=== PATIENT | male | born 1940 | race African-American/Black ===

== ENCOUNTER 2016-10-08 02:28 | Inpatient (IN) ==
[2016-10-08] MEDS ORDERED: ASPIRIN 325 MG TABLET PO STA (02:46)
[2016-10-08] MEDS ORDERED: FUROSEMIDE 40 MG/4 ML VIAL IV STA (04:08)
[2016-10-08] MEDS ORDERED: FUROSEMIDE 40 MG/4 ML VIAL ONE (04:09)
[2016-10-08] MEDS ORDERED: ONDANSETRON 4 MG/2 ML VIAL IV PRN (04:14)
--- NOTE | 2016-10-08 04:14 | Emergency Department Note ---
Dayron Benitez Sierra, am scribing for, and in the presence of, Alice Ponce DO 02:46. IKris Catherine, DO, personally performed the services described in this documentation, ascribed by Brenda Padgett in my presence, and it is both accurate and complete . Arrival - Arrival Mode of Arrival: Stretcher Limitations: No Limitations Source: Patient - History of Present Illness HPI Narrative: Pt is a 76 y/o male that was transferred to the ED from [facility] for further evaluation of new onset Afib that began around 2200 last night and elevated troponin levels. Pt reports he was having CP and difficulty breathing and called EMS. Pt states he is no longer having these sxs or any other sxs currently in the ED. Pt denies a PCP. He reports he does have a PMHx of HTN and hyperlipidemia that he takes medications for. Pt states he received his Rx from his prostate surgery in [place], [place] 4 or 5 months ago. Pt denies any previous heart problems. Pt reports he quit smoking about 30 years ago. No other complaints/pain in ED. Onset (ago): hour(s) Severity: moderate Severity scale (1-10): 4 Quality: other Allergies/Adverse Reactions: Allergies Allergy/AdvReac Type Severity Reaction Status Date / Time Penicillins Allergy RASH Verified 10/08/16 02:47 Home Medications: Home Medications Medication Instructions Recorded Confirmed Type Finasteride [Proscar] 5 mg PO DAILY 10/08/16 10/08/16 History Lisinopril [Prinivil] 20 mg PO DAILY 10/08/16 10/08/16 History Tamsulosin [Flomax] 0.4 mg PO DAILY 10/08/16 10/08/16 History Review of System - Review of System 12 point system: reviewed and no additional remarkable complaints except as stated - Review of System Constitutional: Absent: chills, fever Respiratory: Present: other (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) Cardiovascular: Present: chest pain (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), palpitations Gastrointestinal: Absent: abdominal pain, nausea, vomiting Musculoskeletal: Absent: arm pain, back pain, leg pain, neck pain Skin: Absent: rash Neurological: Absent: headache Psychiatric: Absent: anxiety Medical,Surgical,& Family Hx - Medical History Cardio: History of: Hypertension Genitourinary: History of: Prostate Problems - Surgical History Reproductive Surgeries: Surgical HX of;: Prostate Surgery - Family History Family History: noncontributory - Social History Smoking Status: Former smoker Frequency of Alcohol Use: None Type of Drug Use: None Marital Status: Lives With:: Spouse Functional capacity: independent ambulation Exam Vital Signs: Vital Signs Temperature 98.5 F 10/08/16 02:28 Pulse Rate 115 H 10/08/16 03:29 Respiratory Rate 18 10/08/16 03:29 Blood Pressure 134/83 10/08/16 03:29 O2 Sat by Pulse Oximetry 96 10/08/16 03:29 - General General appearance: alert, in no apparent distress - Head Head exam: Present: atraumatic, normocephalic - Eye Eye exam: Present: PERRL, EOMI - ENT ENT exam: Present: mucous membranes moist. Absent: mucous membranes dry - Neck Neck exam: Present: full ROM. Absent: tenderness - Chest Chest inspection: Present: symmetric chest wall rise. Absent: tenderness - Respiratory Respiratory exam: Present: normal lung sounds bilaterally. Absent: respiratory distress - Cardiovascular Cardiovascular exam: Present: tachycardia, irregular rhythm, normal heart sounds - Abdominal Exam Abdominal exam: Present: soft. Absent: tenderness - Extremities Exam Extremities exam: Present: full ROM. Absent: tenderness - Back Exam Back exam: Present: full ROM. Absent: tenderness - Neurological Exam Neurological exam: Present: alert, oriented X3, CN II-XII intact. Absent: motor sensory deficit - Psychiatric Psychiatric exam: Present: normal affect, normal mood - Skin Skin exam: Present: warm, dry Course Course Narrative: This is a 76-year-old male who was transferred from [facility] for evaluation of new onset atrial fib. The patient reports to me that he has never had any kind of heart problems that he is aware of. He had prostate surgery back in June that was done in [facility] for benign prostatic hypertrophy. He takes a blood pressure medicine and a cholesterol medicine and a baby aspirin a day. The patient stated that tonight he felt very short of breath and called the ambulance to come to his house. When they arrived the patient was in respiratory distress but his heart was beating irregular and very fast. He was transported to the local hospital where he received Cardizem Lovenox aspirin and other medications. His heart rate dramatically improved and his shortness of breath got much better. The patient is now resting comfortably his heart rate is anywhere from 114-125 he is in atrial fibrillation. He says that he is feeling much better he denies any chest pain or shortness of breath to me at this time. Physical exam the patient is awake alert his vital signs are stable his heart rate is between 114- 120 it is in atrial fibrillation. HEENT exam is normal neck is supple heart has an irregularly irregular rate and rhythm lungs reveal breath sounds to be diminished at the bases his abdomen is rounded soft nontender with good bowel sounds. He has no masses. His extremities are intact his neurologic exam is nonfocal treatment in the ER I did review his previous treatment record. Repeat EKG shows atrial fibrillation of [address]-T changes. We repeated a troponin here which remains elevated at 0.0519. I placed a phone call to Dr. Petty on-call for cardiology she agrees with the admission. We will place him on a Cardizem drip and I will be giving him an additional dose of Lasix to help with the pulmonary edema. The patient is agreement with this treatment plan. - Reevaluation(s) Reevaluation #1: resting - no further complaints Time: 04:13 - Consultations Consultation #1: Dr. Petty consulted and has accepted the admission Time: 04:13 Results - Labs Lab Results: I have reviewed the patients labs Labs: Laboratory Tests 10/08/16 02:56 Troponin I 0.519 H - EKG EKG results: interpreted by ERMD EKG shows: atrial fibrillation - Impressions a fib with RVR Disposition Clinical Impression: Atrial fibrillation with RVR, CHF (congestive heart failure) Case discussed with: patient, patient's family Disposition: Still a Patient Condition: Stable Time of Disposition: 04:14
[2016-10-08] MEDS ORDERED: ENOXAPARIN 80 MG/0.8 ML SYRINGE SUBCUT SCH ×2 (05:00→21:00)
--- NOTE | 2016-10-08 06:28 | EKG Report ---
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
--- NOTE | 2016-10-08 07:32 | EKG Report ---
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
--- NOTE | 2016-10-08 08:45 | Cardiology History & Physical ---
Assessment and Plan - Time spent with patient Time spent with patient: Greater than 30 minutes (1) Orthopnea Status: Acute Assessment and plan: Patient presented to [facility] with complaints of orthopnea and new onset atrial fibrillation. This could be concerning for possible underlying coronary artery disease. Troponin was mildly elevated. After discussing further with Dr. Dominguez it was decided that patient would best benefit from left heart catheterization. Risk and benefits of procedure were reviewed with patient. He agrees to proceed with this procedure later today with Dr. Prado. Patient was kept n.p.o. and will plan for heart catheterization later today. -Echocardiogram -BNP -Chest x-ray -Further plan and addendum to follow per Dr. Dominguez Current Visit: Yes (2) Atrial fibrillation with RVR Status: Acute Assessment and plan: This appears to be a new onset atrial fibrillation with RVR. Patient has now converted to normal sinus rhythm with heart rates in the 70s. Will convert patient's diltiazem to p.o and further adjust medications as needed during his hospital stay. -We will add vitamin C 1000 mg twice daily Current Visit: Yes (3) Hypertension Status: Chronic Assessment and plan: This is currently well controlled. Will continue patient's home medications at this time. Will further adjust as needed during his hospital stay. Current Visit: Yes (4) BPH (benign prostatic hyperplasia) Status: Chronic Assessment and plan: This is clinically stable. I have restarted patient's home medications. 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 Redman is a 76 year old male -Citizen Of [place] male without a known history of coronary artery disease, not routinely followed by cardiology. Patient was transferred from [facility] in [place] after presenting with shortness of breath and new onset atrial fibrillation. Patient has cardiac risk factors significant for advanced age, hypertension, former smoker (quit 35 years ago), sedentary lifestyle and family history of coronary artery disease ( mom at age 61 from myocardial infarction). Patient has a past medical history of BPH. He denies ever undergoing heart catheterization. However, he confirms having a normal stress test at [facility] approximately 6 years ago. Patient was in his usual state of health until Saturday night when he was awoken from his sleep with shortness of breath. Patient confirms that his shortness of breath is relieved when he sits up. He denies chest pain, heaviness and tightness. He confirms heart racing and diaphoresis. Over the weekend this continued to progress. Saturday night around 11:30 PM he woke up with severe shortness of breath that was significantly worse than his previous episodes. At this time he felt that he needed to seen by medical personnel so he presented to [facility] ER for further evaluation. Upon arrival to [facility], he was noted to be in atrial fibrillation with a rapid ventricular response. Heart rate of 147 was noted. Troponin was noted to be mildly elevated at 0.1. Patient was then transported to [facility]. Patient was admitted under cardiology's service and housed on the telemetry unit. Of note, patient reports that he continues to be very active. 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 He denies any chest pain, heaviness or tightness on exertion. He also denies dyspnea on exertion. He reports that he only becomes short of breath at night when he lays down to sleep. However, he does confirm easy fatigability and having to take multiple rest breaks while performing his activities. He denies fever, chills, cough, nausea, vomiting, abdominal pain, melena and lower extremity swelling. Patient was seen and examined in the telemetry unit. He continues to deny chest pain, heaviness and tightness. He reports that his breathing is much better. Troponin is mildly elevated at 0.5 and 0.7. EKG reveals atrial fibrillation with a controlled ventricular response, LVH with ST abnormality in lateral leads. Q waves noted in V2 and V3. Patient is currently in normal sinus rhythm with heart rates in the 70s without any overt arrhythmias or ectopy noted. We will keep patient n.p.o. at this time and further discuss with Dr. Dominguez. Further plan and addendum to follow per Dr. Dominguez. Home Medications Medication Instructions Recorded Confirmed Type Finasteride [Proscar] 5 mg PO DAILY 10/08/16 10/08/16 History Lisinopril [Prinivil] 20 mg PO DAILY 10/08/16 10/08/16 History Tamsulosin [Flomax] 0.4 mg PO DAILY 10/08/16 10/08/16 History Allergies Allergy/AdvReac Type Severity Reaction Status Date / Time Penicillins Allergy RASH Verified 10/08/16 02:47 - Constitutional Constitutional: Present: fatigue. Absent: chills, fever(s), frequent falls, lethargy, malaise, weakness, weight gain, weight loss - Cardiovascular Cardiovascular: Present: diaphoresis, dyspnea, orthopnea, palpitations, PND. Absent: chest pain at rest, chest pain with activity, claudication, dyspnea on exertion, edema, radiating jaw, neck or arm pain, lightheadedness - Respiratory Respiratory: Present: dyspnea. Absent: cough, hemoptysis, dyspnea on exertion, pain on inspiration, change in phlegm color - Gastrointestinal Gastrointestinal: Absent: abdominal pain, constipation, cramping, diarrhea, heartburn, hematemesis, hematochezia, loose stools, melena, nausea, vomiting - Genitourinary Genitourinary: Present: other (BPH) - Neurological Neurological: Absent: abnormal gait, abnormal speech, behavioral changes, dizziness, syncope - Hematologic/Lymphatic Hematologic/Lymphatic: Absent: easy bleeding, easy bruising, lymphadenopathy Medical,Surgical,& Family Hx - Medical History Cardio: History of: Hypertension Genitourinary: History of: Prostate Problems - Surgical History Cardiac Surgeries: Patient Denies: Cardiac Catheterization Reproductive Surgeries: Surgical HX of;: Prostate Surgery - Social History Smoking Status: Former smoker Frequency of Alcohol Use: None Type of Drug Use: None Cardiology Physical Exam - Constitutional Vitals: Vital Signs Temp Pulse Resp BP Pulse Ox 96.8 F L 88 20 107/75 95 10/08/16 07:17 10/08/16 07:17 10/08/16 07:17 10/08/16 07:17 10/08/16 07:17 Intake and Output 10/07/16 10/08/16 10/08/16 22:59 06:59 14:59 Intake Total 38.5 / 488.5 Balance 38.5 / 188.5 Intake: IV 38.5 / 38.5 Cardizem Inj 125 mg In Ns 38.5 / 38.5 100 ml @ 5 MG/HR 5 mls/ hr IV TITRATE [facility] Rx#: [id number] Other: Weight 187 lb 3 oz General appearance: normal weight, no acute distress - Head Head exam: Present: normal inspection, normocephalic, atraumatic - Neck Neck exam: Present: normal inspection. Absent: lymphadenopathy, tenderness - Respiratory Respiratory exam: Present: other (Crackles in bilateral bases). Absent: accessory muscle use, chest wall tenderness - Cardiovascular Cardiovascular exam: Present: regular rate and rhythm. Absent: gallop, rubs, systolic murmur - GI/Abdominal GI/Abdominal exam: Present: normal bowel sounds - Extremities Exam Extremities exam: Present: normal inspection, normal capillary refill, other ( Normal upper and lower extremity pulses). Absent: calf tenderness, edema - Back Exam Back exam: Present: normal inspection - Neurological Exam Neurological exam: Present: alert, oriented X3, normal gait - Psychiatric Psychiatric exam: Present: normal affect, normal mood. Absent: agitated, anxious - Skin Skin exam: Present: normal color, warm, dry Result/EKG - Labs CBC & BMP: 10/08/16 08:47 10/08/16 08:47 Lab Results: I have reviewed the past 24 hour labs Labs: Laboratory Results - last 24 hr 10/08/16 05:28 Troponin I 0.739 H D - EKG EKG results: interpreted by me EKG shows: atrial fibrillation
--- NOTE | 2016-10-08 08:46 | EKG Report ---
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
[2016-10-08 08:53] LABS: Basophils % 0.2 % (0.0-0.8); Eosinophils # 0.1 10*3/uL (0.0-0.87); Eosinophils % 0.6 % (0.00-10.9); Hematocrit 37.5 VOL% (42.0-52.0); Hemoglobin 12.5 GM/DL (14.0-18.0); Immature Granulocytes % 0.2 %; Immature Granulocytes Absolute 0.02 #; Lymphocytes # 1.9 10*3/uL (1.4-4.0); Lymphocytes % 21.3 % (21.2-54.2); Mean Corpuscular HGB Conc 33.3 GM/DL (32-36); Mean Corpuscular Hemoglobin 28 PG (27-34); Mean Corpuscular Volume 84.7 FL (87-102); Mean Platelet Volume 11.4 FL (9.6-12.0); Monocytes # 0.8 10*3/uL (0.11-0.8); Monocytes % 9.7 % (1.7-12.7); Neutrophils # 5.9 10*3/uL (1.4-7.4); Platelet Count 169 T/CUMM (130-400); Red Blood Count 4.43 MC/CUMM (3.8-5.5); Red Cell Distribution Width 13.4 % (9.3-17.3); White Blood Count 8.7 T/CUMM (4-12)
[2016-10-08 09:30] LABS: Calcium 8.5 MG/DL (8.5-10.1); Magnesium 2.1 MG/DL (1.8-2.4); Osmolality,Calculated 290.8 MOS/KG (273-304)
[2016-10-08 09:38] LABS: Troponin I Only 0.719 NG/ML (0.00-0.045)
--- NOTE | 2016-10-08 10:05 | XRay Report ---
XR chest 1V portable Indication: Shortness of breath. Chest one view: Comparison outside facility chest x-ray obtained 8 hours earlier. Opacification of medial right lung base is again shown, suspicious for pneumonia. Underlying this is a diffuse reticular prominence of the lungs, cardiomegaly and slight central pulmonary vascular prominence. Impression: Right middle lobe pneumonia. Query underlying CHF. PROCEDURE INTERPRETED AT [facility] DEPARTMENT OF RADIOLOGY Final Report Signed by: Daniel Mohr M.D.
[2016-10-08] MEDS ORDERED: diphenhydrAMINE CAP 25 MG CAPSULE PO ONE (10:42)
[2016-10-08] MEDS ORDERED: DIAZEPAM 5 MG TABLET PO ONE (10:42)
[2016-10-08] MEDS ORDERED: POTASSIUM CHLORIDE RIDER 10 MEQ in PREMIX 1 EACH IV PRN (10:42)
[2016-10-08] MEDS ORDERED: MAGNESIUM SULF RIDER 2 GM in PREMIX 1 EACH IV PRN (10:42)
[2016-10-08] MEDS: ASCORBIC ACID 500 MG TABLET PO SCH ×2 (10:46→21:18)
[2016-10-08] MEDS ORDERED: DILTIAZEM 30 MG TABLET PO ONE (10:51)
[2016-10-08] MEDS ORDERED: SODIUM CHLORIDE 0.45% 1,000 ML IV SCH (11:00)
[2016-10-08 11:40] LABS: PT Patient Result 10.9 SECS
--- NOTE | 2016-10-08 11:44 | ECHO Report ---
Christiano Redman Exam Date: 10/08/2016 09:45 Referring Physician: Technologist: Shirley Lombardi Age: 76 Ht (in): 71 Wt (lb): 187 Gender: M Exam Location: [facility] Echo Indications: A fib, Chf BP: 107 / 75 HR: 88 Rhythm: Sinus Technical Quality: average IMPRESSIONS Moderate concentric left ventricular hypertrophy. The overall EF appears to be 55% but there is inferior wall hypokinesis. Diastolic parameters are most consistent with Grade 2 diastolic dysfunction or pseudonormalization. Very mild /AI Mild mitral regurgitation Biatrial enlargment Mild tricuspid insufficiency with RVSP estimated at 38mmHg plus the right atrial pressure (mild pulmonary hypertension) MEASUREMENTS (Male / Female) Normal Values 2D ECHO LV Diastolic Diameter PLAX 4.3 cm 4.2 - 5.9 / 3.9 - 5.3 cm LV Systolic Diameter PLAX 3.6 cm LV Fractional Shortening PLAX 18.1 % IVS Diastolic Thickness 1.7 cm 0.6 - 1.0 / 0.6 - 0.9 cm LVPW Diastolic Thickness 1.4 cm 0.6 - 1.0 / 0.6 - 0.9 cm RV Internal Dim ED PLAX 2.8 cm Aortic Root Diameter 2.8 cm LA Systolic Diameter LX 3.8 cm 3.0 - 4.0 / 2.7 - 3.8 cm DOPPLER TR Peak Velocity 308.0 cm/s TR Peak Gradient 37.9 mmHg FINDINGS Left Ventricle Moderate concentric left ventricular hypertrophy. The overall EF appears to be 55% but there is inferior wall hypokinesis. Diastolic parameters are most consistent with Grade 2 diastolic dysfunction or pseudonormalization. Right Ventricle Mildly increased right ventricular size. Right Atrium Moderately increased right atrial size. Left Atrium Moderately increased left atrial size. Mitral Valve Mild mitral valve sclerosis. Mild mitral valve regurgitation. Aortic Valve Mild aortic valve sclerosis. Mild aortic valve regurgitation. There is very mild aortic stenosis with peak velocity across the aortic valve of 1.86 m/sec Tricuspid Valve Mild tricuspid valve sclerosis. Mild tricuspid valve regurgitation. Tricuspid regurgitation velocities suggest a PAP of 37.9 mmHg + RAP. Pulmonic Valve Morphologically normal pulmonic valve. Pericardium No pericardial effusion. Aorta Normal size aortic root and proximal ascending aorta. Zhane Prado (Electronically Signed) Final Date: 08 Oct 2016 11:43
--- NOTE | 2016-10-08 11:54 | History and Physical Update ---
Sedation H&P Update - History and Physical H&P was reviewed, the patient examined and there: are no changes in the patients condition since last H&P was completed. - Dictation Physical: refer to H&P completed by admitting physician - Physical Exam Mental Status: alert and oriented Heart: regular rate and rhythm Lung: clear to auscultation Abdomen: within normal limits Vitals: within normal limits - Sedation Plan for Sedation: moderate Patient Consent: Procedure disscussed with patient and patinet has consented., Risks and benefits were discussed with patient,including infection,, bleeding, injury to surrounding structures, seizure, temporary nerve, Patient understands and accepts potential risks/benefits and agrees to, proceed. ASA Class: II Airway Assessment: Class III: Soft palate, base of uvula visible
[2016-10-08 11:57] LABS: Risk Ratio 3.13; VLDL CHOLESTEROL 8.6 MG/DL
[2016-10-08] MEDS ORDERED: LIDOCAINE 1% 20 ML VIAL ONE (11:59)
[2016-10-08] MEDS ORDERED: HEPARIN/NACL 0.9% 2 UNITS/ML 1,000 ML IV ONE (11:59)
[2016-10-08] MEDS ORDERED: VERAPAMIL 5 MG/2 ML VIAL ONE ×2 (12:20→12:39)
[2016-10-08] MEDS ORDERED: NITROGLYCERIN DRIP 0 MG/0 ML BOTTLE IV ONE (12:20)
--- NOTE | 2016-10-08 12:36 | XRay Report ---
XR chest 2V Indication: Shortness of breath. Chest 2 views: Comparison 10/08/2016 at 0856 hours. Heart size remains upper limits normal. Overall, interstitial prominence of lungs has decreased slightly although there is continued prominence noted. More focal area of density in the right lung bases improved slightly as well. Very small bilateral pleural effusions are present lateral view. Impression: Decreased interstitial prominence of the lungs, likely decreased edema. Very small bilateral pleural effusions. PROCEDURE INTERPRETED AT [facility] DEPARTMENT OF RADIOLOGY Final Report Signed by: Daniel Mohr M.D.
[2016-10-08] MEDS ORDERED: HEPARIN/NACL 0.9% 2 UNITS/ML 500 ML IV ONE (12:38)
[2016-10-08] MEDS ORDERED: NITROGLYCERIN DRIP 50 MG/250 ML BOTTLE IV ONE (12:39)
[2016-10-08] MEDS ORDERED: MIDAZOLAM 2 MG/2 ML VIAL ONE (12:40)
[2016-10-08] MEDS ORDERED: fentaNYL 100 MCG/2 ML VIAL ONE (12:41)
[2016-10-08] MEDS ORDERED: ACETAMINOPHEN 325 MG TABLET PO PRN (13:18)
--- NOTE | 2016-10-08 13:24 | Cardiac Catheterization ---
Date of Procedure:: 10/08/16 Pre-op Diagnosis: New onset atrial fibrillation and regional wall motion abnormality Post-op diagnosis: other (Angiographically normal right dominant epicardial coronary arteries) Procedure: Procedures: 1. Selective left and right coronary angiography 2. Left heart catheterization resting hemodynamics 4. Right femoral iliac angiography 5. Closure right femoral arteriotomy with Mynx closure device After consent was taken from the patient. Taken to the catheterization lab for left heart catheterization via the femoral artery. Time out was taken and recorded. 1% lidocaine was infiltrated in the skin and subcutaneous tissue overlying the right femoral artery. Modified Seldinger technique and an 18- gauge Cook needle was used for access to the right femoral artery. An 0.35 J- wire was advanced through the needle into the central aorta under fluoroscopy. A small skin was made and a 6 Kyrgyz sheath was placed over the wire. The sheath was aspirated and flushed. A JL46 was advanced over the wires in the left main coronary artery was selectively engaged. Multiple orthogonal views of the left system were obtained. The catheter was then exchanged over the wire. The sheath was aspirated and flushed. A JR4 catheter was advanced over the wire into the central aorta. The right coronary was selectively engaged and orthogonal views of the right coronary artery were obtained. The catheter was then exchanged over the wire, the sheath was aspirated and flushed. At this time an angled pigtail catheter was advanced across the aortic valve into the ventricle. Pressure measurements were obtained. Pullback measurements were performed. The dip unit operator reviewed the films. The sheath was aspirated and flushed and a right femoral and iliac angiography was performed. The access site was amenable for closure and the area was reprepped with ChloraPrep and draped with sterile towels. The Angio-Seal closure device was used in standard technique. There was no hematoma and distal pulses were good. Diagnostic fluoroscopy time 1.7 minutes with total fluoroscopy dose 179 mGy total contrast exposure 40 cc of Omnipaque FINDINGS: LV: 149/5 LVEDP: 12 Ao:147/66 EF: Not assessed LM: Angiographically normal LAD: Angiographically normal LCx: Angiographically normal, nondominant with large bifurcating first obtuse marginal very proximally RCA: There is a large dominant vessel RFA/ROSIE: His vessels are very large angiographically normal access is that are very close to branch vessel just above the bifurcation not amenable to closure with the Angio-Seal device. Assessment: 1. Angiographically normal right dominant epicardial coronary arteries 2. Normal resting hemodynamics 3. Normal right femoral iliac arteries PLAN: 1. Treatment of underlying her new onset atrial fibrillation while searching for other causes or contributing factors 2. I notified Dr. Dominguez and discussed with the patient's family. 4 hours of bedrest. Implants: Mynx closure device Anesthesia: minimal conscious sedation Surgeon / Physician: Zhane Prado Director Meetings: none Estimated blood loss: none Specimens: none sent Condition: stable Disposition: floor - Medications / Follow-up
[2016-10-08 14:54] LABS: CKMB % 7.3 %
[2016-10-08 14:55] LABS: Troponin I Only 0.556 NG/ML (0.00-0.045)
[2016-10-08] MEDS ORDERED: DILTIAZEM 90 MG TABLET PO SCH (15:00)
[2016-10-08] MEDS: DILTIAZEM CD 240 MG CAPSULE PO SCH (15:36)
[2016-10-08] MEDS: APIXABAN 5 MG TABLET PO SCH (21:18)
[2016-10-09 06:24] LABS: Basophils % 0.3 % (0.0-0.8); Eosinophils # 0.2 10*3/uL (0.0-0.87); Eosinophils % 2.2 % (0.00-10.9); Hematocrit 37.7 VOL% (42.0-52.0); Hemoglobin 12.3 GM/DL (14.0-18.0); Immature Granulocytes % 0.3 %; Immature Granulocytes Absolute 0.02 #; Lymphocytes # 2.6 10*3/uL (1.4-4.0); Lymphocytes % 34.4 % (21.2-54.2); Mean Corpuscular HGB Conc 32.6 GM/DL (32-36); Mean Corpuscular Hemoglobin 28 PG (27-34); Mean Corpuscular Volume 86.1 FL (87-102); Mean Platelet Volume 11.8 FL (9.6-12.0); Monocytes # 0.8 10*3/uL (0.11-0.8); Monocytes % 10.9 % (1.7-12.7); Neutrophils % 51.9 % (38.7-73.9); Platelet Count 168 T/CUMM (130-400); Red Blood Count 4.38 MC/CUMM (3.8-5.5); Red Cell Distribution Width 13.6 % (9.3-17.3); White Blood Count 7.6 T/CUMM (4-12)
[2016-10-09 06:53] LABS: Calcium 8.3 MG/DL (8.5-10.1); Osmolality,Calculated 291.7 MOS/KG (273-304); Potassium 4.1 MMOL/L (3.5-5.1)
[2016-10-09 06:57] LABS: Calcium 8.3 MG/DL (8.5-10.1); Magnesium 2.1 MG/DL (1.8-2.4); Osmolality,Calculated 289.8 MOS/KG (273-304); Potassium 4.1 MMOL/L (3.5-5.1)
--- NOTE | 2016-10-09 07:49 | EKG Report ---
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
[2016-10-09] MEDS: DILTIAZEM CD 240 MG CAPSULE PO SCH (08:24)
[2016-10-09] MEDS: APIXABAN 5 MG TABLET PO SCH (08:24)
[2016-10-09] MEDS: ASCORBIC ACID 500 MG TABLET PO SCH (08:25)
[2016-10-09] MEDS ORDERED: TAMSULOSIN 0.4 MG CAPSULE PO SCH (09:00)
[2016-10-09] MEDS ORDERED: LISINOPRIL 20 MG TABLET PO SCH (09:00)
[2016-10-09 12:17] VITALS: BP 121/55
--- NOTE | 2016-10-09 13:19 | Discharge Summary ---
Hospital Course - Hospital Course Hospital Course: Clinical Registered Nurse: None PCP: Tiana Lan, nurse practitioner Mr. Redman is a 76 year old male -Pakistani male without a known history of coronary artery disease, not routinely followed by cardiology. Patient has cardiac risk factors significant for advanced age, hypertension, former smoker ( quit 35 years ago), sedentary lifestyle and family history of coronary artery disease (mom at age 61 from myocardial infarction). Patient has a past medical history of BPH. He denies ever undergoing heart catheterization. However, he confirms having a normal stress test at [facility] approximately 6 years ago. Patient was transferred from [facility] in [place] after presenting with shortness of breath, new onset atrial fibrillation and mildly elevated cardiac enzymes. Subsequently, he underwent cardiac catheterization per Dr. Prado with the following impressions noted: Assessment: 1. Angiographically normal right dominant epicardial coronary arteries 2. Normal resting hemodynamics 3. Normal right femoral iliac arteries Post cardiac catheterization patient was transported back to the telemetry unit in stable condition. Patient has done well postoperatively has been without complications. His new onset Afib and shortness of breath thought to secondary to his hyperthyroidism. His TSH this admission was extremely low with elevated free T4. Patient is unsure is he has ever diagnosed with hyperthyroid in the past. However, he does not take any thyroid medications at home. Tapazole has been initiated. Right groin is soft without bleeding, hematoma and bruit. Distal pulses present. Patient has ambulated around the room and down the connor without any difficulty. Right groin has remained stable post ambulation. Groin precautions have been reviewed with the patient. He verbalizes understanding of this. Labs are stable post cath with creatinine of 0.9. He denies chest pain, heaviness and tightness this morning. He also reports that his breathing has greatly improved and appears to be back to baseline. During his hospitalization he converted back to a normal sinus rhythm with Cardizem, this will be continued at discharge. He will also be discharged home on Eliquis for stroke prevention. This could possibly be discontinued at a later date if patient remains in a normal sinus rhythm. Patient is anxious for discharge home. Having felt that patient has met maximal medical therapy, he will be discharged home in stable condition. Patient has been given an appointment with Gen admissions manager rn for management of his hyperthyroidism. He has also been given an appointment with Dr. Dominguez in approximately 2 weeks with CBC, BMP, magnesium and EKG. Patient will be discharged home on preadmission medications with the addition of Tapazole, 5 mg TID, Eliquis 5 mg BID, Diltiazem 240 Daily and vitamin C 1000 mg BID. Patient verbalizes understanding of discharge instructions and discharge medications. - Time spent with patient Time with patient DS: Greater than 30 minutes Diagnosis - Discharge Diagnosis (1) Orthopnea Status: Resolved (2) Atrial fibrillation with RVR Status: Resolved (3) Hypertension Status: Chronic (4) BPH (benign prostatic hyperplasia) Status: Chronic (5) Hyperthyroidism Status: Acute Specialty Discharge - Follow Up or Referrals Follow up with: Dale Dominguez MD [Physician] - 2 Weeks (Schedule follow up appointment with Dr. Dominguez in approximately 2 weeks with CBC, BMP, magnesium and EKG.) Discharge Plan - Discharge Data Disposition: Disch To Home/Self Care Condition at Discharge: Stable Discharge Diet: heart healthy Activity: no lifting (No lifting or squatting 1 week), other (Post cath expectations) Hygiene: may shower, other (Post cath expectations) Weight Bearing at Discharge: other (Post cath expectations) Driving: other (Post cath expectations) Contact your physician if you experience:: fever over 101, Difficulty voiding, Redness or swelling, Nausea/Vomiting, Shortness of breath, Bleeding, pain uncontrolled by pain medications - Discharge Medications New Apixaban [Eliquis] 5 mg PO BID #60 tablet Diltiazem Cd Cap [Cardizem CD] 240 mg PO DAILY #30 capsule methIMAzole [Tapazole] 5 mg PO TID #90 tablet Ascorbic Acid Tab [Vitamin C Tab] 1,000 mg PO BID #60 tablet Continue Lisinopril [Prinivil] 20 mg PO DAILY Tamsulosin [Flomax] 0.4 mg PO DAILY Discontinued Finasteride [Proscar] 5 mg PO DAILY - Follow Up or Referral - Forms/Instructions Exam - Constitutional Vitals: Period Temp Pulse Resp BP Sys/Rankin Pulse Ox Last 24 Hr 98.4 F-99.1 F 45-84 18-20 121-174/55-97 91-98 Exam: General appearance: normal weight, no acute distress - Head Head exam: Present: normal inspection, normocephalic, atraumatic - Neck Neck exam: Present: normal inspection. Absent: lymphadenopathy, tenderness - Respiratory Respiratory exam: Present: Clear to auscultation throughout. Absent: accessory muscle use, chest wall tenderness - Cardiovascular Cardiovascular exam: Present: regular rate and rhythm. Absent: gallop, rubs, systolic murmur - GI/Abdominal GI/Abdominal exam: Present: normal bowel sounds - Extremities Exam Extremities exam: Present: normal inspection, normal capillary refill, other ( Normal upper and lower extremity pulses). Absent: calf tenderness, edema right groin is soft without bleeding, hematoma and bruit. Distal pulses present. - Back Exam Back exam: Present: normal inspection - Neurological Exam Neurological exam: Present: alert, oriented X3, normal gait - Psychiatric Psychiatric exam: Present: normal affect, normal mood. Absent: agitated, anxious - Skin Skin exam: Present: normal color, warm, dry Discharge Results Labs on day of discharge: Labs from last 24 hours 10/09/16 10/09/16 10/09/16 05:22 05:22 05:22 WBC RBC Hgb Hct MCV MCH MCHC RDW Plt Count MPV Neut % (Auto) Lymph % (Auto) [place] % (Auto) Eos % (Auto) Baso % (Auto) Neut # (Auto) Lymph # (Auto) [place] # (Auto) Eos # (Auto) Baso # (Auto) Immature Gran % Nucleated RBC % Immature Gran # Nucleated RBCs # Sodium 145 144 Potassium 4.1 4.1 Chloride 113 H 113 H Carbon Dioxide 24 23 Anion Gap 12.1 12.1 BUN 23 H 23 H Creatinine 0.90 0.90 GFR Calculation 129 129 BUN/Creatinine Ratio 25.00 H 25.00 H Glucose 105 104 Calculated Osmolality 291.7 289.8 Calcium 8.3 L 8.3 L Magnesium 2.1 Total Creatine Kinase CK-MB (CK-2) CK and CKMB Interp Troponin I Free T4 2.85 H TSH 3rd Generation 10/09/16 10/09/16 10/08/16 05:22 05:22 14:09 WBC 7.6 RBC 4.38 Hgb 12.3 L Hct 37.7 L MCV 86.1 L MCH 28 MCHC 32.6 RDW 13.6 Plt Count 168 MPV 11.8 Neut % (Auto) 51.9 Lymph % (Auto) 34.4 [place] % (Auto) 10.9 Eos % (Auto) 2.2 Baso % (Auto) 0.3 Neut # (Auto) 4.0 Lymph # (Auto) 2.6 [place] # (Auto) 0.8 Eos # (Auto) 0.2 Baso # (Auto) 0.0 Immature Gran % 0.3 Nucleated RBC % 0.0 Immature Gran # 0.02 Nucleated RBCs # 0.00 Sodium Potassium Chloride Carbon Dioxide Anion Gap BUN Creatinine GFR Calculation BUN/Creatinine Ratio Glucose Calculated Osmolality Calcium Magnesium Total Creatine Kinase 81 CK-MB (CK-2) 5.9 H CK and CKMB Interp 7.3 Troponin I 0.234 H D 0.556 H D Free T4 TSH 3rd Generation 10/08/16 11:02 WBC RBC Hgb Hct MCV MCH MCHC RDW Plt Count MPV Neut % (Auto) Lymph % (Auto) [place] % (Auto) Eos % (Auto) Baso % (Auto) Neut # (Auto) Lymph # (Auto) [place] # (Auto) Eos # (Auto) Baso # (Auto) Immature Gran % Nucleated RBC % Immature Gran # Nucleated RBCs # Sodium Potassium Chloride Carbon Dioxide Anion Gap BUN Creatinine GFR Calculation BUN/Creatinine Ratio Glucose Calculated Osmolality Calcium Magnesium Total Creatine Kinase CK-MB (CK-2) CK and CKMB Interp Troponin I Free T4 TSH 3rd Generation < 0.005 L - Imaging and Cardiology Cardiology Procedure: report reviewed by hi DS: Provider Date of admission: 10/08/16 04:14 Primary care physician: . No PCP Attending physician on admission: Tiana Petty, Consults: 10/08/16 15:16 Consult to Case Mgmt/Social Srvs [CONS] Routine Reason for Case Mgmt/Social Srvs: Home Health Consult Comment: Nursing for education, med management Discharging clinician: Deb Reddy NP Expected date of discharge: 10/09/16
[2016-10-09] MEDS ORDERED: methIMAzole 5 MG TABLET PO SCH (15:00)
== END 2016-10-09 15:07 | disposition home or self-care (01) | DRG 287 ==
LOC: N.ED 02:28 → N.EDINP 04:14 → N.TELES 05:13
PROVIDERS: ADMIT Internal Medicine Cardiovascular Disease; ATTEND Internal Medicine Cardiovascular Disease
PROC: CLCCHCL (ICD-10-PCS; 2016-10-08 13:45)

== ENCOUNTER 2016-11-02 06:21 | Inpatient (IN) ==
[2016-11-02] MEDS: NOREPINEPHRINE 4 MG in SODIUM CHLORIDE 0.9% 246 ML IV SCH (06:30)
[2016-11-02] MEDS ORDERED: LEVOFLOXACIN INJ 150 ML IV ONE ×2 (06:30→07:40)
[2016-11-02] MEDS ORDERED: ONDANSETRON 4 MG/2 ML VIAL ONE (06:30)
[2016-11-02] MEDS ORDERED: AMIODARONE 150 MG/3 ML VIAL ONE (06:55)
[2016-11-02] MEDS ORDERED: LEVOFLOXACIN INJ 750 MG in PREMIX 1 EACH IV STA (06:56)
--- NOTE | 2016-11-02 06:56 | Emergency Department Note ---
Arrival - Arrival Chief Complaint: Shortness of Breath Stated Complaint: shortness of breath Limitations: Altered Mental Status, Physical Limitation Source: Old Records Reviewed Time Seen by Provider: 11/02/16 06:50 - History of Present Illness HPI Narrative: This 76-year-old black male presents on transfer from [place] and abated on on pressor, ventilatory, and antiarrhythmic support. The patient originally presented to the [place] ER with abrupt onset of severe shortness of breath, presenting to the [place] ER severely dyspneic and hypoxic. Subsequently the patient rapidly deteriorated requiring intubation soon followed by resuscitation as well as treatment for initially ventricular tachycardia which with electrical shock progressed to atrial fib with a rapid rate for which she was begun on amiodarone. Notable evaluation at [facility] prior to transfer revealed right middle and lower lobe pneumonia. Patient presents to our ER as stated in abated and on the laboratory pressor support, obviously in critical condition. Of note, the patient was hospitalized here 08 October for atrial fibrillation and cardiac cath which was subsequently negative per Dr. Petty. Onset (ago): hour(s) (Patient presents 3 hours post onset of symptoms) Allergies/Adverse Reactions: Allergies Allergy/AdvReac Type Severity Reaction Status Date / Time Penicillins Allergy RASH Verified 11/02/16 06:58 Home Medications: Home Medications Medication Instructions Recorded Confirmed Type Lisinopril [Prinivil] 20 mg PO DAILY 10/08/16 10/08/16 History Tamsulosin [Flomax] 0.4 mg PO DAILY 10/08/16 10/08/16 History Apixaban [Eliquis] 5 mg PO BID #60 tablet 10/09/16 Rx Ascorbic Acid Tab [Vitamin C Tab] 1,000 mg PO BID #60 tablet 10/09/16 Rx Diltiazem Cd Cap [Cardizem CD] 240 mg PO DAILY #30 capsule 10/09/16 Rx methIMAzole [Tapazole] 5 mg PO TID #90 tablet 10/09/16 Rx Review of System - Review of System ROS unobtainable: due to endotracheal tube, due to mental status Medical,Surgical,& Family Hx - Medical History Cardio: History of: Hypertension Neurology: No history of: Seizures Genitourinary: History of: Prostate Problems - Surgical History Cardiac Surgeries: Patient Denies: Cardiac Catheterization Reproductive Surgeries: Surgical HX of;: Prostate Surgery - Social History Smoking Status: Former smoker Exam Physical Examination: GENERAL: Well developed, well nourished black male intubated and paralyzed HEENT: Normocephalic. No trauma. Moist mucous membranes. EOMI. PERRLA. ENT NML NECK: Supple. No adenopathy. CARDIAC: Irregular. No murmurs. Heart rate 90-140 CHEST: Scattered expiratory esther and right axillary rales. ET tube lip line at 20. ABDOMEN: Soft. Nontender. Hypo-bowel sounds. EXTREMITIES: No trauma. Normal ROM. No pedal edema. SKIN: No diaphoresis. No rash. NEURO: Unresponsive and paralyzed Vital Signs: Vital Signs Temperature 96.4 F L 11/02/16 06:59 Pulse Rate 161 H 11/02/16 06:59 Respiratory Rate 16 11/02/16 08:05 Blood Pressure 128/83 11/02/16 06:59 O2 Sat by Pulse Oximetry 100 11/02/16 06:29 Course Course Narrative: During course of treatment the patient converted to sinus rhythm. - Consultations Consultation #1: Discussed with hospitalist service who will admit for further evaluation treatment. Results - Labs CBC & BMP: 11/02/16 07:04 11/02/16 07:04 Labs: Initial the laboratory revealed white blood cell count 14,000, hematocrit 44, glucose 197, BUN 19, creatinine 1.1, sodium 143, potassium 3.2. I have reviewed our laboratory noted the increase in white count to 19 5. I have also noted the positive cardiac enzymes with a troponin of 1.16. - Impressions Initial EKG [facility]: Sinus tachycardia at 112 with left atrial enlargement, left axis deviation, and left ventricular hypertrophy. EKG here: Atrial fibrillation at 113 with intraventricular conduction delay and nonspecific ST changes. - Diagnostic Findings Procedure: Chest x-ray: image reviewed by me, report reviewed by me ([facility] films revealed bilateral perihilar infiltrates with right middle and right lower lobe infiltrates. Chest x-ray here reveals progression of right-sided infiltrates to near white out for portions of the right lung field.) Disposition Clinical Impression: Right middle and lower lobe pneumonia, Status post cardiopulmonary arrest, Atrial fibrillation, Abnormal cardiac enzymes Case discussed with: patient's family Disposition: Still a Patient Condition: Critical Time of Disposition: 08:45
[2016-11-02] MEDS ORDERED: methylPREDNISolone SOD SUC 125 MG/2 ML VIAL IV STA (06:57)
[2016-11-02] MEDS ORDERED: ALBUTEROL NEB SOLN 5 MG/ML 20 ML/BOTTLE CONT NEB STA (06:57)
[2016-11-02 07:12] LABS: Basophils % 0.2 % (0.0-0.8); Eosinophils % 0.2 % (0.00-10.9); Hematocrit 40.8 VOL% (42.0-52.0); Hemoglobin 13.2 GM/DL (14.0-18.0); Immature Granulocytes Absolute 0.78 #; Lymphocytes # 2.5 10*3/uL (1.4-4.0); Lymphocytes % 12.8 % (21.2-54.2); Mean Corpuscular HGB Conc 32.4 GM/DL (32-36); Mean Corpuscular Hemoglobin 28 PG (27-34); Mean Corpuscular Volume 87.9 FL (87-102); Mean Platelet Volume 11.2 FL (9.6-12.0); Monocytes # 1.2 10*3/uL (0.11-0.8); Monocytes % 5.9 % (1.7-12.7); Neutrophils % 76.9 % (38.7-73.9); Platelet Count 216 T/CUMM (130-400); Red Blood Count 4.64 MC/CUMM (3.8-5.5); Red Cell Distribution Width 13.5 % (9.3-17.3); White Blood Count 19.5 T/CUMM (4-12)
--- NOTE | 2016-11-02 07:14 | EKG Report ---
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
[2016-11-02] MEDS ORDERED: AMIODARONE INJ 150 MG in DEXTROSE 5% 100 ML IV ONE (07:17)
[2016-11-02 07:22] LABS: INR 1.1; PT Patient Result 11.4 SECS; Partial Thromboplastin Time 28.8 SECS (0-40)
[2016-11-02] MEDS ORDERED: methylPREDNISolone SOD SUC 125 MG/2 ML VIAL ONE (07:40)
[2016-11-02 07:47] LABS: Alanine Aminotransferase 50 U/L (16-61); Albumin 2.5 G/DL (3.4-5.0); Alkaline Phosphatase 97 U/L (45-117); Aspartate Amino Transferase 77 U/L (0-37); Bilirubin,Total < 0.39 MG/DL (0.2-1.0); Blood Urea Nitrogen 20 MG/DL (7-18); Calcium 7.4 MG/DL (8.5-10.1); Glucose 232 MG/DL (74-106); Osmolality,Calculated 297.7 MOS/KG (273-304); Potassium 3.8 MMOL/L (3.5-5.1); Sodium 145 MMOL/L (136-145); Total Protein 6.2 G/DL (6.4-8.3)
[2016-11-02 07:58] LABS: Lymphocytes 8 % (20-55); Myelocytes 1 %; Segmented Neutrophils 89 % (50-85); Total Cells Counted 100
[2016-11-02 07:59] LABS: Hypochromasia 1+; Platelet Estimate Adequate; Polychromasia Slight; Target Cells Slight
--- NOTE | 2016-11-02 08:10 | CT Report ---
Referring physician: Rome Leon Exam: CT brain without contrast Date: November 02, 2016 Comparison: None Reason: Altered mental status The patient is an Emergency Department patient on November 02, 2016. Technique: Axial images of the head were obtained without the use of contrast. Total DLP was 997.9 mGy*cm. Findings: There is probable mild chronic microvascular ischemic change. Multiple scalp calcifications are also present. No hydrocephalus or midline shift is seen. There is no evidence of recent intracranial hemorrhage, abnormal mass effect or an acute infarction. No acute osseous process is identified. There is mild fluid within the right sphenoid sinus and minimal mucosal thickening within the sphenoid sinuses. The right mastoid air cells appear clear, but there may be mild fluid within the left mastoid air cells. Impression: 1. No acute intracranial process is identified. 2. Probable chronic microvascular ischemic change. 3. Mild sinus disease. The CT exam was performed using one or more of the following dose reduction techniques: Automated exposure control and adjustment of the mA and/or kV according to patient size. PROCEDURE INTERPRETED AT [facility] DEPARTMENT OF RADIOLOGY Final Report Signed by: Dr. Natali Harding
[2016-11-02 08:13] LABS: CKMB % 2.8 %
--- NOTE | 2016-11-02 08:15 | XRay Report ---
Referring Physician: Rome Leon Exam: XR chest 1V portable Date: November 02, 2016 at 7:37 AM Reason: Shortness of breath Comparison: Chest one view portable November 02, 2016 at 4:47 AM Findings: An endotracheal tube is in place with its distal tip at the thoracic inlet. A feeding tube is also present, but its distal tip is poorly visualized. The cardiac silhouette is again enlarged. There are diffuse hazy opacities within the right lung and in the left perihilar region. This could represent pulmonary edema and/or pneumonia. No pneumothorax or definite pleural fluid is identified. No acute osseous process is seen. Impression: 1. The distal tip of the endotracheal tube is at the level of the thoracic inlet. 2. Cardiomegaly. 3. There are diffuse hazy opacities within the right lung as well as left perihilar opacities. This is similar to the earlier chest x-ray and is concerning for pulmonary edema and/or pneumonia. PROCEDURE INTERPRETED AT [facility] DEPARTMENT OF RADIOLOGY Final Report Signed by: Dr. Natali Harding
[2016-11-02 08:16] LABS: Troponin I Only 1.16 NG/ML (0.00-0.045)
--- NOTE | 2016-11-02 08:17 | XRay Report ---
Referring Physician: Rome Leon Exam: XR chest 1V portable Date: November 02, 2016 at 7:37 AM Reason: Endotracheal tube placement Comparison: Chest x-ray portable November 02, 2016 at 4:47 AM Findings: An endotracheal tube is in place with its distal tip at the thoracic inlet. A feeding tube is also in place, extending into the stomach and beyond the [id number]. The cardiac silhouette is again enlarged. There are again diffuse hazy opacities within the right lung and in the left perihilar region. This could represent pulmonary edema and/or pneumonia. No pneumothorax or definite pleural fluid is identified. The osseous structures appear stable. Impression: The distal tip of the endotracheal tube is located at the thoracic inlet. The study is otherwise similar to before. PROCEDURE INTERPRETED AT [facility] DEPARTMENT OF RADIOLOGY Final Report Signed by: Dr. Natali Harding
--- NOTE | 2016-11-02 08:23 | XRay Report ---
Portable chest Date: 11/02/2016 Clinical history: Endotracheal tube placement Comparison: 11/02/2016 Technique: Portable AP sitting chest Findings: Stable cardiomegaly with calcification aortic knob. Persistent diffuse parenchymal findings in the lungs. The endotracheal tube remains at the level of T1. Nasogastric tube seen entering the stomach. Stable mediastinum and osseous structures. Impression: No significant change in the appearance of the chest. The tip of the endotracheal tube remains at the level of T1 and could safely be advanced below this level. Stable pulmonary edema with nasogastric tube seen entering the stomach. PROCEDURE INTERPRETED AT [facility] DEPARTMENT OF RADIOLOGY Final Report Signed by: Dr. Izabela Lemons
--- NOTE | 2016-11-02 08:27 | EKG Report ---
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
[2016-11-02 08:30] LABS: Apearance,Urine CLOUDY (Clear); Bilirubin,Urine Negative (Negative); Blood, Urine Moderate mg/dL (Negative); Glucose,Urine (UA) 150 mg/dL (Negative); Ketones,Urine Negative (Negative); Mucus,Urine Occasional /LPF (Occasional); Nitrite,Urine Negative (Negative); Protein,Urine 100 MG/DL; RBC,Urine 82 /HPF (0-4); Sperm,Urine Occasional /HPF (Negative); Squamous Epithelial Cell,Urine Occasional /HPF (0-10); Urine Color Yellow (Yellow); Urine Specific Gravity 1.006 (1.001-1.035); Urine Urobilinogen < 2.0 EU/DL (0.2-1.0); WBC,Urine 8 /HPF (0-6)
[2016-11-02 08:36] LABS: Barbiturates Screen,Urine Negative (Negative); Benzodiazepines Screen,Urine Positive (Negative); Cannabinoid Screen,Urine Negative (Negative); Opiate Screen,Urine Negative (Negative); Phencyclidine Screen,Urine Negative (Negative)
[2016-11-02 08:42] LABS: ABG Base Excess -10.3 MMOL/L (-2.5-2.5); ABG HCO3 16.4 MMOL/L (20-26); ABG Oxygen Saturation 99.1 % (95-100); ABG TCO2 18.4 MMOL/L (23-27)
[2016-11-02 08:43] LABS: ABG PH 7.136 (7.35-7.45)
[2016-11-02] MEDS: AMIODARONE INJ 450 MG in DEXTROSE 5% 241 ML IV SCH ×2 (08:44→23:25)
[2016-11-02] MEDS ORDERED: MAGNESIUM SULF RIDER 4 GM in PREMIX 1 EACH IV PRN (09:24)
[2016-11-02] MEDS ORDERED: ACETAMINOPHEN 325 MG TABLET PO PRN (09:24)
[2016-11-02] MEDS ORDERED: MAGNESIUM SULF RIDER 2 GM in PREMIX 1 EACH IV PRN (09:24)
[2016-11-02] MEDS ORDERED: MORPHINE 2 MG/1 ML SYRINGE IV PRN (09:24)
[2016-11-02] MEDS ORDERED: ONDANSETRON 4 MG/2 ML VIAL IV PRN (09:24)
[2016-11-02] MEDS ORDERED: POTASSIUM CHLORIDE 20 MEQ TABLET PO PRN ×2 (09:24)
--- NOTE | 2016-11-02 09:27 | Hospitalist History & Physical ---
Addendum entered and electronically signed by Nehemiah Wiggins PA 11/02/16 10:39 : Physical examination. General appearance: normal weight, intubated, sedated - Head Head exam: Present: normocephalic, atraumatic - Eye Eye exam: Present: EOMI. Absent: conjunctival injection, nystagmus Pupils: Present: VISHNU, normal accommodation - ENT ENT exam: Present: normal exam, normal external ear exam - Neck Neck exam: Present: thyromegaly, left anterior cervical enlargement - Respiratory Respiratory exam: Present: intubated, decreased lung sounds on right. Absent: wheezes - Cardiovascular Cardiovascular exam: Present: atrial fibrillation, tachycardia Absent: carotid bruit, gallop, rubs - GI/Abdominal GI/Abdominal exam: Present: normal bowel sounds. Absent: ascites, distended, mass - Extremities Exam Extremities exam: Present: normal inspection, normal capillary refill, trace edema bilaterally - Back Exam Back exam: Unable to assess due to endotracheal intubation - Neurological Exam Neurological exam: Present: Intubated, sedated - Psychiatric Psychiatric exam: Present: Unable to assess due to endotracheal intubation - Skin Skin exam: Present: normal color, warm, dry Original Note: <Nehemiah Wiggins - Last Filed: 11/02/16 10:36> Assessment and Plan (1) Respiratory failure requiring intubation Status: Acute Assessment and plan: This is a 76-year-old -Polish male who was transferred from [facility] intubated and sedated with propofol. ABGs on admission reveal a pH of 7.13, PCO2 of 60, PO2 283, HCO3 of 16.4. Chest x-ray shows endotracheal tube in place with distal tip appropriately at thoracic inlet. Blood cultures have been ordered. Patient will be admitted to the ICU. Pulmonology has been consulted for assistance with ventilation management. Current Visit: Yes (2) Pneumonia Status: Acute Assessment and plan: White count is 19.5. Chest x-ray shows diffuse hazy opacities within the right lung as well as left perihilar opacities concerning for pulmonary edema and/or pneumonia. Patient has been started on levofloxacin in the ED. He is being admitted to the ICU. We will continue levofloxacin plus aztreonam empiric coverage. Current Visit: Yes (3) Atrial fibrillation with RVR Status: Resolved Assessment and plan: Patient recently diagnosed with A. fib with RVR earlier this month. Prior left heart catheterization revealed no significant abnormalities. Patient takes Eliquis. He is currently on amiodarone drip and his rate is controlled. Cardiology been consulted. Current Visit: No (4) Hyperthyroidism Status: Acute Assessment and plan: Patient does have a noticeably enlarged left anterior neck. He was diagnosed with hypothyroidism earlier this year and does have an appointment scheduled with the [employer] [facility] supervisor for later this year. According the patient records he was started on methimazole previously. Will obtain a thyroid ultrasound, TSH and T4 levels. Current Visit: No (5) CHF (congestive heart failure) Status: Acute Assessment and plan: Elevated BNP. Troponin elevated 1.160. Will try and troponins and repeat EKGs. Ejection fraction not assessed unless LHC. Will obtain echocardiogram. Cardiology has been consulted. Current Visit: No (6) Hypertension Status: Chronic Current Visit: No (7) BPH (benign prostatic hyperplasia) Status: Chronic Current Visit: No History of Present Illness Chief complaint: Respiratory failure, pneumonia History of present illness: Mr. Redman is a 76 year old male with a past medical history significant for atrial fibrillation, hypertension, coronary artery disease, hyperthyroidism, BPH who presents as a transfer from [facility], intubated, for further evaluation of acute respiratory failure. This patient initially presented to the [place] ED with acute shortness of breath and was subsequently [facility] with worsening dyspnea and hypoxia. Patient was found to be in acute respiratory failure requiring intubation and subsequently went into ventricular tachycardia. After electrical shock, the patient progressed to atrial fibrillation with RVR and was started on an amiodarone drip. Chest x-ray at [facility] prior to transfer revealed right middle and lower lobe pneumonia. On admission to the [place] ED, the patient continues to be intubated and sedated. His found to be hypotensive and was started on Levophed drip. He is also being treated empirically with levofloxacin. The patient was recently hospitalized here at [place] on October 08, 2016 for new onset atrial fibrillation and was subsequently taken to the [facility] for an LHC which revealed no significant abnormalities. Ejection fraction was not assessed at that time. He is being followed by Dr. Dale Dominguez and was last seen in his office on Saturday, October 29, 2016. On exam, the patient is intubated sedated so complete review of systems was unobtainable. Patient's daughters were at bedside and provided much of the history that we received. Patient was examined by myself along with Dr. Rome. Family notes that the patient has been short of breath for at least 5 days and has been complaining of dysphagia to both solids and liquids for at least a week. They also note that the patient has recently lost 20 pounds which is thought to be related to his hyperthyroidism. He does have an appointment scheduled with the [employer] [facility] supervisor, however, it is in the fall of this year. According to previous hospital records, the patient does take methimazole. Preliminary labs admission reveal: WBC 19.5, hemoglobin 13.2, hematocrit 40.8, pH 7.136, PCO2 60.0, PO2 283.0, HCO3 16.4, BUN 20, creatinine 1.5, glucose 232, CKMB 8.5, troponin I 0.16, BNP 297. Urinalysis is unremarkable however a urine culture has been ordered. Toxicology is positive for benzodiazepines. Patient is obviously a full code and will be admitted to the ICU to the hospital medicine team for further evaluation and treatment. Case has been discussed with both Dr. Leon and Dr. Rome. Home Medications Medication Instructions Recorded Confirmed Type Lisinopril [Prinivil] 20 mg PO DAILY 10/08/16 10/08/16 History Tamsulosin [Flomax] 0.4 mg PO DAILY 10/08/16 10/08/16 History Apixaban [Eliquis] 5 mg PO BID #60 tablet 10/09/16 Rx Ascorbic Acid Tab [Vitamin C Tab] 1,000 mg PO BID #60 tablet 10/09/16 Rx Diltiazem Cd Cap [Cardizem CD] 240 mg PO DAILY #30 capsule 10/09/16 Rx methIMAzole [Tapazole] 5 mg PO TID #90 tablet 10/09/16 Rx Allergies Allergy/AdvReac Type Severity Reaction Status Date / Time Penicillins Allergy RASH Verified 11/02/16 06:58 Medical,Surgical,& Family Hx - Medical History Cardio: History of: CAD, Hypertension Neurology: No history of: Cerebrovascular Accident, Seizures Endocrine: History of: Thyroid Disorder (hyperthyroidism) Respiratory: History of: Pneumonia Genitourinary: History of: Prostate Problems - Surgical History Cardiac Surgeries: Sugical HX of: Cardiac Catheterization Reproductive Surgeries: Surgical HX of;: Prostate Surgery - Family History Family History: Reports;: Family Heart Disease, Family Hypertension - Social History Smoking Status: Former smoker Frequency of Alcohol Use: Rarely Type of Drug Use: None, Unknown Marital Status: Single Lives With:: Alone Functional capacity: independent ambulation ROS unobtainable: due to endotracheal tube Exam - Constitutional Vitals: Period Temp Pulse Resp BP Sys/Rankin Pulse Ox Last 24 Hr 96.4 F-96.4 F 103-161 16-16 125-154/73-93 100-100 Results - Labs CBC & BMP: 11/02/16 07:04 11/02/16 07:04 Lab Results: I have reviewed the past 24 hour labs - EKG EKG results: interpreted by RAMONAD EKG shows: atrial fibrillation - Diagnostic Findings Procedure: Chest x-ray: image reviewed by me, report reviewed by me (pulmonary edema/pneumonia), CT: image reviewed by me, report reviewed by me (no acute processes) <Gabriela Rome - Last Filed: 11/02/16 15:41> History of Present Illness History of present illness: Mr. Redman is a 76 year old male admitted s/p cardiopulmonary arrest and is intubated. Since admission, pt had a bronchoscopy and has started seizing. He was given Ativan 2mg IV x 1 and stat EEG ordered. Neurology saw the patient and felt he was in status epilepticus. He was started on IV Keppra. Overall prognosis is guarded. Antibiotics were changed to Cleocin as Levaquin and Aztreonam can lower the seizure threshold. Neuro: Neurochecks. Repeat EEG ordered. CT head reviewed. Pain meds and Diprovan ordered CV: Cont Vasoactive agents. Cardiology consulted. Cont Amiodarone drip. Serial cardiac markers. TSH. ECHO. PULM: F/U BAL studies, bronchodilators, vent support, pulm following. F/E/N/GI: Tubefeeds. Protonix IV for GI prophylaxis HEME: Lovenox for DVT prophylaxis. Serial labs. ID: Cleocin. F/U Blood, urine and sputum cultures. Overall prognosis is guarded. D/W pt, nurse, PA, neuro and family and all questions answered. Exam - Constitutional Vitals: Period Temp Pulse Resp BP Sys/Rankin Pulse Ox Last 24 Hr 96.4 F-97.4 F 60-161 16-31 99-166/53-109 98-100 Results - Labs CBC & BMP: 11/02/16 07:04 11/02/16 07:04
[2016-11-02] MEDS ORDERED: SODIUM CHLORIDE 0.45% 1,000 ML IV SCH (09:30)
[2016-11-02] MEDS ORDERED: ENOXAPARIN 40 MG/0.4 ML SYRINGE SUBCUT SCH (10:00)
[2016-11-02 10:06] LABS: Cholesterol 153 MG/DL (50-200); HDL Cholesterol 45 MG/DL (40-60); Thyroid Stimulating Hormone < 0.005 uIU/ml (0.358-3.74); Triglycerides 45 MG/DL (2-150)
[2016-11-02] MEDS ORDERED: AZTREONAM 2,000 MG in SODIUM CHLORIDE 0.9% 100 ML IV SCH (10:30)
--- NOTE | 2016-11-02 10:38 | Ultrasound Report ---
Exam: Thyroid sonogram Date: 11/02/2016 9:41 AM Indication: Hyperthyroidism Comparison: None Findings: Right Lobe: 4.2 x 1.6 x 2.4 cm diffuse inhomogeneity Left Lobe: 4.7 x 2.5 x 1.96 cm diffuse inhomogeneity Isthmus: 8.4 mm Impression: Diffuse inhomogeneity without a defined focal solid or cystic mass present. Ultrasound images were stored and captured The Ultrasound images were captured and stored. PROCEDURE INTERPRETED AT [facility] DEPARTMENT OF RADIOLOGY Final Report Signed by: Dr. Aayush Crowder
[2016-11-02] MEDS: PANTOPRAZOLE 40 MG VIAL IV SCH (11:43)
[2016-11-02] MEDS: SODIUM ACETATE 50 MEQ in SODIUM CHLORIDE 0.45% 1,000 ML IV SCH ×2 (11:44→20:35)
[2016-11-02] MEDS: PROPOFOL 1,000 MG/100 ML BOTTLE IV SCH ×3 (11:52→22:08)
[2016-11-02] MEDS ORDERED: LORazepam 2 MG/1 ML VIAL ONE (12:10)
[2016-11-02] MEDS ORDERED: LORazepam 2 MG/1 ML VIAL IM ONE (12:11)
--- NOTE | 2016-11-02 12:17 | Pulmonology Consult Note ---
Assessment and Plan (1) Status post cardiac Status: Acute Assessment and plan: At present patient is not responsive. He is having some seizure activity. Getting Ativan as needed. Defer to hospitalist. May want to put on Keppra. Current Visit: Yes (2) Seizures Status: Acute Assessment and plan: See above. Getting Ativan as needed for seizures. May be related to hypoxic brain injury. Too early to tell. May consider Keppra. Defer to hospitalist Current Visit: Yes (3) Atrial fibrillation with RVR Status: Resolved Assessment and plan: Rhythm seems regular now although his rates are around 120. Current Visit: No (4) Hyperthyroidism Status: Acute Assessment and plan: Continue methimazole. Check thyroid profiles. Need records from previous evaluation. Current Visit: No (5) Respiratory failure requiring intubation Status: Acute Assessment and plan: ABGs reflect adequate oxygen and sedation but inadequate ventilation. We have repositioned the ET tube. Hopefully will lead to reduction of PCO2. Also starting some bicarb IV. Current Visit: Yes History of Present Illness Chief complaint: Post cardiac arrest History of present illness: Mr. Redman is a 76 year old male referred from [facility]. He was admitted there with increasing shortness of breath and hypoxemia and in respiratory distress. He was intubated and developed ventricular tachycardia. He was defibrillated. He is on amiodarone drip at present. He was transferred here for further evaluation. He had a heart cath about 3 weeks ago here that reportedly was negative. At the present time he has a BNP of 297 which is mildly elevated and some infiltrate in the right lung. His ABG show a combined metabolic respiratory acidosis. His ET tube is too high on chest x-ray and needs repositioning. Patient is not able to give any history due to decreased level of consciousness and endotracheal tube. He has a history of hypothyroidism and is on methimazole. Home Medications Medication Instructions Recorded Confirmed Type Lisinopril [Prinivil] 20 mg PO DAILY 10/08/16 10/08/16 History Tamsulosin [Flomax] 0.4 mg PO DAILY 10/08/16 10/08/16 History Apixaban [Eliquis] 5 mg PO BID #60 tablet 10/09/16 Rx Ascorbic Acid Tab [Vitamin C Tab] 1,000 mg PO BID #60 tablet 10/09/16 Rx Diltiazem Cd Cap [Cardizem CD] 240 mg PO DAILY #30 capsule 10/09/16 Rx methIMAzole [Tapazole] 5 mg PO TID #90 tablet 10/09/16 Rx Allergies Allergy/AdvReac Type Severity Reaction Status Date / Time Penicillins Allergy RASH Verified 11/02/16 06:58 ROS unobtainable: due to endotracheal tube, due to mental status Exam (Pulmonay) H&P - Constitutional Vitals: Period Temp Pulse Resp BP Sys/Rankin Pulse Ox Last 24 Hr 96.4 F-97.4 F 103-161 16-30 125-166/73-109 98-100 Exam: Patient is unresponsive. Pupils are small but not reactive. Left pupil slightly larger than the right one. Patient is having intermittent seizure type activity. Orotracheal tube is in place. I have already repositioned it to where it is 28 cm at the lip. That is dictated separately. His neck is supple. Chest reveals some rhonchi bilaterally more on the right than the left. Heart rate around 120, regular rhythm, without murmur. Abdomen soft no masses. Extremities no clubbing cyanosis or edema. Medical,Surgical,& Family Hx - Medical History Cardio: History of: CAD, Hypertension Neurology: No history of: Cerebrovascular Accident, Seizures Endocrine: History of: Thyroid Disorder (hyperthyroidism) Respiratory: History of: Pneumonia Genitourinary: History of: Prostate Problems - Surgical History Cardiac Surgeries: Sugical HX of: Cardiac Catheterization Reproductive Surgeries: Surgical HX of;: Prostate Surgery - Family History Family History: Reports;: Family Heart Disease, Family Hypertension - Social History Smoking Status: Former smoker Frequency of Alcohol Use: Rarely Type of Drug Use: None, Unknown Results - Labs CBC & BMP: 11/02/16 07:04 11/02/16 07:04 Lab Results: I have reviewed the past 24 hour labs - Diagnostic Findings Procedure: Chest x-ray: image reviewed by me (Bilateral interstitial infiltrates worse on the right. Initial chest x-ray shows the ET tube to be too high barely in the thoracic inlet. Second chest x-ray shows ET tube about 3 cm above the melba once we have repositioned)
--- NOTE | 2016-11-02 12:29 | EKG Report ---
Stationary ECG Study [facility] Test Date: 11/02/2016 12:27:59 PM Pat Name: EVA POWELL Department: Room: 118 Gender: M Private Chef: : 1940 Requested by: Nehemiah Wiggins Order Number: [id number] Reading MD: RADHA PRUITT Intervals [place] Rate: 74 P: 63 OK: 181 QRS: 23 QRSD: 140 T: 253 QT: 469 QTc: 496 Interpretive Statements SINUS RHYTHM POSSIBLE LEFT ATRIAL ENLARGEMENT INTRAVENTRICULAR CONDUCTION DELAY ANTEROSEPTAL MYOCARDIAL INFARCTION, OF INDETERMINATE AGE Electronically Signed On 11-04-16 15:59:31 CDT by RADHA PRUITT [email or web address]
--- NOTE | 2016-11-02 12:31 | XRay Report ---
Referring Physician: Brodie Ivey MD Exam: XR chest 1V portable Date: November 02, 2016 at 11:57 AM Reason: Endotracheal tube repositioned Comparison: Chest one view portable November 02, 2016 at 7:37 AM Findings: An endotracheal tube is in place with its distal tip at the level of the aortic arch, approximately 3.5 cm above the melba. A feeding tube extends into the stomach and beyond the [id number]. The cardiac silhouette is again enlarged. There are diffuse hazy opacities within the right lung and opacities within the left lower lung zone. This could represent pulmonary edema and/or pneumonia. No pneumothorax is identified. The osseous structures appear stable. Impression: An endotracheal tube is in place as above. The study is otherwise similar to before. PROCEDURE INTERPRETED AT [facility] DEPARTMENT OF RADIOLOGY Final Report Signed by: Dr. Natali Harding
[2016-11-02 13:26] LABS: ABG Base Excess -11.7 MMOL/L (-2.5-2.5); ABG HCO3 15.6 MMOL/L (20-26); ABG Oxygen Saturation 99.3 % (95-100); ABG PO2 229.4 MM HG (80-95); ABG TCO2 16.8 MMOL/L (23-27); Allen Test Positive; Pt O2 Delivery Device Ventilator
[2016-11-02 13:28] LABS: ABG PH 7.209 (7.35-7.45)
[2016-11-02] MEDS: CLINDAMYCIN INJ 900 MG in PREMIX 1 EACH IV SCH ×2 (13:51→20:38)
[2016-11-02] MEDS: methIMAzole 5 MG TABLET PO SCH ×3 (13:58→20:35)
--- NOTE | 2016-11-02 14:31 | Cardiology Consult Note ---
Assessment and Plan - Time spent with patient Time spent with patient: Greater than 30 minutes (due to assessment, plan, and documentation) (1) Respiratory failure requiring intubation Status: Acute Assessment and plan: SEE PLAN OF CARE LISTED BELOW. Current Visit: Yes (2) Pneumonia Status: Acute Assessment and plan: SEE PLAN OF CARE LISTED BELOW. Current Visit: Yes (3) Atrial fibrillation with RVR Status: Chronic Assessment and plan: SEE PLAN OF CARE LISTED BELOW. Current Visit: No (4) Ventricular tachycardia Status: Acute Assessment and plan: SEE PLAN OF CARE LISTED BELOW. Current Visit: Yes (5) Hypertension Status: Chronic Assessment and plan: SEE PLAN OF CARE LISTED BELOW. Current Visit: No (6) Hyperthyroidism Status: Chronic Assessment and plan: SEE PLAN OF CARE LISTED BELOW. Current Visit: No (7) BPH (benign prostatic hyperplasia) Status: Chronic Assessment and plan: SEE PLAN OF CARE LISTED BELOW. Current Visit: No History of Present Illness - Data of Consult Patient: known to practice within the last 3 years Consult date: 11/02/16 Requesting Physician: Nehemiah Wiggins Primary care physician: DANTE SANTOYO - Consult Narrative Reason for consult: AFib, elevated troponin History of present illness: TOUCHER UP: DR. DOMINGUEZ PCP: GAVINO SARAVIA Mr. Redman is being seen in the ICU, room 118. He is sedated and intubated on mechanical ventilation. He is nonresponsive. Much of the history is obtained from the medical record. Mr. Redman is a 76 year old male with history of hypertension, paroxysmal atrial fibrillation, BPH, and hyperthyroidism. October 08, 2016, Mr. Redman presented to the hospital having palpitations and was noted to be in new onset atrial fibrillation. At that time he had a slight bump in his cardiac troponin so he underwent cardiac catheterization which showed no significant obstructive coronary artery disease. The [facility] failure. Apparently, he presented to the emergency room with worsening dyspnea and hypoxia. He required intubation and subsequently went into ventricular tachycardia. From what the nurses tell me, he was shocked 6 times and required 6 rounds of epinephrine along with CPR. After electrical shock, he went into atrial fibrillation with rapid ventricular response. He was started on an amiodarone drip and transferred to our facility for further evaluation and treatment. Chest x-ray at [facility] revealed a right middle and lower lobe pneumonia. On arrival to our facility, he was hypotensive and required vasopressor support with Levophed. He is now housed in our ICU and is having what appears to be seizure activity. Neurology has been consulted to see him. Pulmonology has been consulted for ventilator management. We were called to see him due to his atrial fibrillation and elevated troponin. Upon exam, he is no longer requiring vasopressors to maintain blood pressure and is now in sinus rhythm with rates in the 60s. He remains on IV amiodarone. He was recently seen in the clinic by Dr. Dominguez and had been complaining of CASTILLO and dizziness. He was prescribed Eliquis for anticoagulation but reported it was too expensive. He was noted to have bilateral carotid bruits and underwent carotid ultrasound on 10/26/16 which revealed 1-39% stenosis of the bilateral internal carotid arteries. He was also noted to have patent ECA bilaterally. He was prescribed a 30 day holter monitor to evaluate for cardiac arrhythmias but had difficulty with this and wished to discontinue it. Mr. Redman 's creatinine is 1.5 on admission with troponin 1.16, now up to 2.6 with elevated CK-MB and normal CPK. I suspect this is probably due to his electrical shock and CPR he received given his recent negative cardiac evaluation. We will follow along and monitor for cardiac arrhythmias. ASSESSMENT/PLAN: 1. RESPIRATORY FAILURE REQUIRING INTUBATION - ABGs on admission reveal pH of 7.13, PCO2 of 60, PO2 283, HCO3 of 16.4. He is sedated and on mechanical ventilation in the ICU. Pulmonology has been consulted for ventilator management. 2. PNEUMONIA - WBC 19.5. Pulmonology has been consulted. He has been started on IV antibiotics. Blood cultures are pending. 3. PAROXYSMAL ATRIAL FIBRILLATION WITH RVR - Continue IV amiodarone. Patient is now in normal sinus rhythm. Head CT showed no acute intracranial processes. Mr. Redman will require anticoagulation. 4. VENTRICULAR TACHYCARDIA REQUIRING SHOCK/CPR - Patient is now sedated and on mechanical ventilation. He is nonresponsive and having what appears to be seizure activity. EEG is pending. 5. HYPERTENSION - Hypotensive on admission, now well controlled and not requiring vasopressor support. We will continue to monitor and adjust medications accordingly. 6. HYPERTHYROIDISM - TSH <0.005, FT4 1.53 on admission. He is on Tapazole which will be continued. 7. BPH - This is chronic. He takes Flomax at home. Dr. Jerez to follow with further plan and addendum. CC: Gabriela Rome MD - Home Medications and Allergies Home Medications: Home Medications Medication Instructions Recorded Confirmed Type Lisinopril [Prinivil] 20 mg PO DAILY 10/08/16 10/08/16 History Tamsulosin [Flomax] 0.4 mg PO DAILY 10/08/16 10/08/16 History Apixaban [Eliquis] 5 mg PO BID #60 tablet 10/09/16 Rx Ascorbic Acid Tab [Vitamin C Tab] 1,000 mg PO BID #60 tablet 10/09/16 Rx Diltiazem Cd Cap [Cardizem CD] 240 mg PO DAILY #30 capsule 10/09/16 Rx methIMAzole [Tapazole] 5 mg PO TID #90 tablet 10/09/16 Rx Allergies/Adverse Reactions: Allergies Allergy/AdvReac Type Severity Reaction Status Date / Time Penicillins Allergy RASH Verified 11/02/16 06:58 ROS unobtainable: due to endotracheal tube, due to mental status Medical,Surgical,& Family Hx - Medical History Cardio: History of: Cardiac Dysrhythmia, Hypertension Neurology: No history of: Cerebrovascular Accident, Seizures Endocrine: History of: Thyroid Disorder (hyperthyroidism) Respiratory: History of: Pneumonia Genitourinary: History of: Prostate Problems - Surgical History Cardiac Surgeries: Sugical HX of: Cardiac Catheterization Reproductive Surgeries: Surgical HX of;: Prostate Surgery - Family History Family History: Reports;: Family Heart Disease, Family Hypertension - Social History Smoking Status: Former smoker Frequency of Alcohol Use: Rarely Type of Drug Use: None, Unknown Marital Status: Single Functional capacity: independent ambulation Physical Examination Vital Signs Temp Pulse Resp BP Pulse Ox 96.4 F L 161 H 16 128/83 100 11/02/16 06:29 11/02/16 06:29 11/02/16 06:29 11/02/16 06:29 11/02/16 06:29 Other: General appearance: Orally intubated and sedated on ventilator. Normal weight. - Head Head exam: Present: normal inspection, normocephalic, atraumatic. Absent: hematoma, laceration - Eye Eye exam: Absent: conjunctival injection, nystagmus, periorbital swelling, scleral icterus, laceration to eyelids Pupils: Absent: dilated, fixed - ENT ENT exam: Present: Orally intubated, normal external ear exam, NG tube in place - Neck Neck exam: Present: normal inspection. Absent: lymphadenopathy, meningismus, tenderness, thyromegaly - Respiratory Respiratory exam: Present: Mechanically ventilated breath sounds. Absent: accessory muscle use - Cardiovascular Cardiovascular exam: Present: regular rate and rhythm, bilateral carotid bruit, Grade 3 systolic murmur. Absent: gallop, JVD, rubs - GI/Abdominal GI/Abdominal exam: Present: normal bowel sounds, soft. Absent: distended, firm , guarding, hernia, mass, tenderness, rebound. - Extremities Exam Extremities exam: Present: normal inspection, normal capillary refill. Upper extremity pulses 2+. Lower extremity pulses 2+. 1+ BLE edema Absent: calf tenderness - Back Exam Back exam: Present: Unable to examine due to habitus. Sedated on mechanical ventilator. - Neurological Exam Neurological exam: Present: Limited due to habitus (on ventilator). Sedated. No purposeful movements. Does not follow commands or respond to verbal/painful stimuli. Has what appears to be seizure activity when stimulated. - Psychiatric Psychiatric exam: Present: Unable to adequately assess due to patient being sedated and on mechanical ventilation. - Skin Skin exam: Present: normal color, dry, intact. Absent: cyanosis, diaphoretic, rash, urticaria Result/EKG - Labs CBC & BMP: 11/02/16 07:04 11/02/16 07:04 Lab Results: I have reviewed the past 24 hour labs Labs: Laboratory Results - last 24 hr 11/02/16 11/02/16 11/02/16 07:04 07:04 07:04 WBC 19.5 H RBC 4.64 Hgb 13.2 L Hct 40.8 L MCV 87.9 MCH 28 MCHC 32.4 RDW 13.5 Plt Count 216 MPV 11.2 Neut % (Auto) 76.9 H Lymph % (Auto) 12.8 L [place] % (Auto) 5.9 Eos % (Auto) 0.2 Baso % (Auto) 0.2 Neut # (Auto) 15.0 H Lymph # (Auto) 2.5 [place] # (Auto) 1.2 H Eos # (Auto) 0.0 Baso # (Auto) 0.0 Total Counted 100 Immature Gran % 4.0 Nucleated RBC % 0.0 Immature Gran # 0.78 Segmented Neutrophils 89 H Lymphocytes 8 L Monocytes 2 Myelocytes 1 Nucleated RBCs # 0.00 Platelet Estimate Adequate Polychromasia Slight Hypochromasia 1+ Target Cells Slight INR 1.1 PT Patient/Control Mix 11.4 Circ Anticoag PTT 28.8 ABG pH ABG pCO2 ABG pO2 ABG HCO3 ABG Total CO2 ABG O2 Saturation ABG Base Excess FiO2 Sodium 145 Potassium 3.8 Chloride 114 H Carbon Dioxide 20 L Anion Gap 14.8 BUN 20 H Creatinine 1.50 H GFR Calculation 64 BUN/Creatinine Ratio 13.00 Glucose 232 H Calculated Osmolality 297.7 Calcium 7.4 L Magnesium Total Bilirubin < 0.39 AST 77 H ALT 50 Alkaline Phosphatase 97 Total Creatine Kinase CK-MB (CK-2) CK and CKMB Interp Troponin I B-Natriuretic Peptide Total Protein 6.2 L Albumin 2.5 L Globulin 3.7 H Albumin/Globulin Ratio 0.6 L Triglycerides Cholesterol LDL Cholesterol VLDL Cholesterol HDL Cholesterol Heart Disease Risk Ratio Free T4 TSH 3rd Generation Urine Color Urine Appearance Urine pH Ur Specific [place] Urine Protein Urine Glucose (UA) Urine Ketones Urine Blood Urine Nitrate Urine Bilirubin Urine Urobilinogen Urine Leukocytes Urine RBC Urine WBC Ur Squamous Epith Cells Urine Mucus Urine Sperm Ur Culture Indicated? Urine Opiates Screen Ur Barbiturates Screen Ur Phencyclidine Scrn U Amphetamine/Methamph U Benzodiazepines Scrn U Cocaine Metab Screen U Cannabinoids Screen 11/02/16 11/02/16 11/02/16 07:04 07:04 07:04 WBC RBC Hgb Hct MCV MCH MCHC RDW Plt Count MPV Neut % (Auto) Lymph % (Auto) [place] % (Auto) Eos % (Auto) Baso % (Auto) Neut # (Auto) Lymph # (Auto) [place] # (Auto) Eos # (Auto) Baso # (Auto) Total Counted Immature Gran % Nucleated RBC % Immature Gran # Segmented Neutrophils Lymphocytes Monocytes Myelocytes Nucleated RBCs # Platelet Estimate Polychromasia Hypochromasia Target Cells INR PT Patient/Control Mix Circ Anticoag PTT ABG pH ABG pCO2 ABG pO2 ABG HCO3 ABG Total CO2 ABG O2 Saturation ABG Base Excess FiO2 Sodium Potassium Chloride Carbon Dioxide Anion Gap BUN Creatinine GFR Calculation BUN/Creatinine Ratio Glucose Calculated Osmolality Calcium Magnesium Total Bilirubin AST ALT Alkaline Phosphatase Total Creatine Kinase 305 CK-MB (CK-2) 8.5 H CK and CKMB Interp 2.8 Troponin I 1.160 H B-Natriuretic Peptide 297 H Total Protein Albumin Globulin Albumin/Globulin Ratio Triglycerides Cholesterol LDL Cholesterol VLDL Cholesterol HDL Cholesterol Heart Disease Risk Ratio Free T4 1.53 H TSH 3rd Generation Urine Color Urine Appearance Urine pH Ur Specific [place] Urine Protein Urine Glucose (UA) Urine Ketones Urine Blood Urine Nitrate Urine Bilirubin Urine Urobilinogen Urine Leukocytes Urine RBC Urine WBC Ur Squamous Epith Cells Urine Mucus Urine Sperm Ur Culture Indicated? Urine Opiates Screen Ur Barbiturates Screen Ur Phencyclidine Scrn U Amphetamine/Methamph U Benzodiazepines Scrn U Cocaine Metab Screen U Cannabinoids Screen 11/02/16 11/02/16 11/02/16 07:04 07:04 08:04 WBC RBC Hgb Hct MCV MCH MCHC RDW Plt Count MPV Neut % (Auto) Lymph % (Auto) [place] % (Auto) Eos % (Auto) Baso % (Auto) Neut # (Auto) Lymph # (Auto) [place] # (Auto) Eos # (Auto) Baso # (Auto) Total Counted Immature Gran % Nucleated RBC % Immature Gran # Segmented Neutrophils Lymphocytes Monocytes Myelocytes Nucleated RBCs # Platelet Estimate Polychromasia Hypochromasia Target Cells INR PT Patient/Control Mix Circ Anticoag PTT ABG pH 7.136 L* ABG pCO2 60.0 H ABG pO2 283.0 H ABG HCO3 16.4 L ABG Total CO2 18.4 L ABG O2 Saturation 99.1 ABG Base Excess -10.3 L FiO2 Sodium Potassium Chloride Carbon Dioxide Anion Gap BUN Creatinine GFR Calculation BUN/Creatinine Ratio Glucose Calculated Osmolality Calcium Magnesium 2.0 Total Bilirubin AST ALT Alkaline Phosphatase Total Creatine Kinase CK-MB (CK-2) CK and CKMB Interp Troponin I B-Natriuretic Peptide Total Protein Albumin Globulin Albumin/Globulin Ratio Triglycerides 45 Cholesterol 153 LDL Cholesterol 108.0 VLDL Cholesterol 9.0 HDL Cholesterol 45 Heart Disease Risk Ratio 3.40 Free T4 TSH 3rd Generation < 0.005 L Urine Color Urine Appearance Urine pH Ur Specific [place] Urine Protein Urine Glucose (UA) Urine Ketones Urine Blood Urine Nitrate Urine Bilirubin Urine Urobilinogen Urine Leukocytes Urine RBC Urine WBC Ur Squamous Epith Cells Urine Mucus Urine Sperm Ur Culture Indicated? Urine Opiates Screen Ur Barbiturates Screen Ur Phencyclidine Scrn U Amphetamine/Methamph U Benzodiazepines Scrn U Cocaine Metab Screen U Cannabinoids Screen 11/02/16 11/02/16 11/02/16 08:16 08:16 12:59 WBC RBC Hgb Hct MCV MCH MCHC RDW Plt Count MPV Neut % (Auto) Lymph % (Auto) [place] % (Auto) Eos % (Auto) Baso % (Auto) Neut # (Auto) Lymph # (Auto) [place] # (Auto) Eos # (Auto) Baso # (Auto) Total Counted Immature Gran % Nucleated RBC % Immature Gran # Segmented Neutrophils Lymphocytes Monocytes Myelocytes Nucleated RBCs # Platelet Estimate Polychromasia Hypochromasia Target Cells INR PT Patient/Control Mix Circ Anticoag PTT ABG pH ABG pCO2 ABG pO2 ABG HCO3 ABG Total CO2 ABG O2 Saturation ABG Base Excess FiO2 Sodium Potassium Chloride Carbon Dioxide Anion Gap BUN Creatinine GFR Calculation BUN/Creatinine Ratio Glucose Calculated Osmolality Calcium Magnesium Total Bilirubin AST ALT Alkaline Phosphatase Total Creatine Kinase CK-MB (CK-2) CK and CKMB Interp Troponin I 2.600 H D B-Natriuretic Peptide Total Protein Albumin Globulin Albumin/Globulin Ratio Triglycerides Cholesterol LDL Cholesterol VLDL Cholesterol HDL Cholesterol Heart Disease Risk Ratio Free T4 TSH 3rd Generation Urine Color Yellow Urine Appearance Cloudy Urine pH 5.0 Ur Specific [place] 1.006 Urine Protein 100 Urine Glucose (UA) 150 Urine Ketones Negative Urine Blood Moderate Urine Nitrate Negative Urine Bilirubin Negative Urine Urobilinogen < 2.0 H Urine Leukocytes Negative Urine RBC 82 Urine WBC 8 Ur Squamous Epith Cells Occasional Urine Mucus Occasional Urine Sperm Occasional Ur Culture Indicated? Results to follow Urine Opiates Screen Negative Ur Barbiturates Screen Negative Ur Phencyclidine Scrn Negative U Amphetamine/Methamph Negative U Benzodiazepines Scrn Positive H U Cocaine Metab Screen Negative U Cannabinoids Screen Negative 11/02/16 11/02/16 12:59 13:20 WBC RBC Hgb Hct MCV MCH MCHC RDW Plt Count MPV Neut % (Auto) Lymph % (Auto) [place] % (Auto) Eos % (Auto) Baso % (Auto) Neut # (Auto) Lymph # (Auto) [place] # (Auto) Eos # (Auto) Baso # (Auto) Total Counted Immature Gran % Nucleated RBC % Immature Gran # Segmented Neutrophils Lymphocytes Monocytes Myelocytes Nucleated RBCs # Platelet Estimate Polychromasia Hypochromasia Target Cells INR PT Patient/Control Mix Circ Anticoag PTT ABG pH 7.209 L* ABG pCO2 40.0 ABG pO2 229.4 H ABG HCO3 15.6 L ABG Total CO2 16.8 L ABG O2 Saturation 99.3 ABG Base Excess -11.7 L FiO2 60.00 Sodium Potassium Chloride Carbon Dioxide Anion Gap BUN Creatinine GFR Calculation BUN/Creatinine Ratio Glucose Calculated Osmolality Calcium Magnesium Total Bilirubin AST ALT Alkaline Phosphatase Total Creatine Kinase CK-MB (CK-2) CK and CKMB Interp Troponin I B-Natriuretic Peptide Total Protein Albumin Globulin Albumin/Globulin Ratio Triglycerides Cholesterol LDL Cholesterol VLDL Cholesterol HDL Cholesterol Heart Disease Risk Ratio Free T4 1.58 H TSH 3rd Generation Urine Color Urine Appearance Urine pH Ur Specific [place] Urine Protein Urine Glucose (UA) Urine Ketones Urine Blood Urine Nitrate Urine Bilirubin Urine Urobilinogen Urine Leukocytes Urine RBC Urine WBC Ur Squamous Epith Cells Urine Mucus Urine Sperm Ur Culture Indicated? Urine Opiates Screen Ur Barbiturates Screen Ur Phencyclidine Scrn U Amphetamine/Methamph U Benzodiazepines Scrn U Cocaine Metab Screen U Cannabinoids Screen - EKG EKG results: interpreted by me, sinus rhythm
--- NOTE | 2016-11-02 14:51 | Neurology Consult Note ---
History of Present Illness History of present illness: Patient unable to provide me any history. History basically obtained from the chart Mr. Redman is a 76 year old male with a past medical history significant for atrial fibrillation, hypertension, coronary artery disease, hyperthyroidism, BPH who presents as a transfer from [facility], intubated, for further evaluation of acute respiratory failure. This patient initially presented to the [facility] ED with acute shortness of breath and was subsequently transferred to admission with general ED with worsening dyspnea and hypoxia. Patient was found to be in acute respiratory failure requiring intubation and subsequently went into ventricular tachycardia. After electrical shock, the patient progressed to atrial fibrillation with RVR and was started on an amiodarone drip. Chest x-ray at [facility] prior to transfer revealed right middle and lower lobe pneumonia. He was found to be hypotensive and was started on Levophed drip. He was also being treated empirically with levofloxacin. In the hospital and since he was started having some jerking movements and shaking of the arm and whole face which looks like a seizure. Home Medications Medication Instructions Recorded Confirmed Type Lisinopril [Prinivil] 20 mg PO DAILY 10/08/16 10/08/16 History Tamsulosin [Flomax] 0.4 mg PO DAILY 10/08/16 10/08/16 History Apixaban [Eliquis] 5 mg PO BID #60 tablet 10/09/16 Rx Ascorbic Acid Tab [Vitamin C Tab] 1,000 mg PO BID #60 tablet 10/09/16 Rx Diltiazem Cd Cap [Cardizem CD] 240 mg PO DAILY #30 capsule 10/09/16 Rx methIMAzole [Tapazole] 5 mg PO TID #90 tablet 10/09/16 Rx Allergies Allergy/AdvReac Type Severity Reaction Status Date / Time Penicillins Allergy RASH Verified 11/02/16 06:58 ROS unobtainable: due to endotracheal tube, due to mental status Medical,Surgical,& Family Hx - Medical History Cardio: History of: Cardiac Dysrhythmia, CAD, Hypertension Neurology: No history of: Cerebrovascular Accident, Seizures Endocrine: History of: Thyroid Disorder (hyperthyroidism) Respiratory: History of: Pneumonia Genitourinary: History of: Prostate Problems - Surgical History Cardiac Surgeries: Sugical HX of: Cardiac Catheterization Reproductive Surgeries: Surgical HX of;: Prostate Surgery - Family History Family History: Reports;: Family Heart Disease, Family Hypertension - Social History Smoking Status: Former smoker Frequency of Alcohol Use: Rarely Type of Drug Use: None, Unknown Exam - Constitutional Vitals: Period Temp Pulse Resp BP Sys/Rankin Pulse Ox Last 24 Hr 96.4 F-97.4 F 61-161 16-31 99-166/53-109 98-100 Exam: GENERAL: Patient is in no acute distress. NECK: Neck is supple. There is no JVD. No carotid bruits present. No thyroid masses. CVS: First and second heart sounds are normal. There is no S3 present. Regular rate and rhythm. RESPIRATORY: Lungs are clear to auscultation without any rales or rhonchi. ABDOMEN: Soft and non-tender. Bowel sounds are present. There is no hepatosplenomegaly. EXT: There is no palpable edema. Peripheral pulses are present. Skin: No rashes Central Nervous system: General: Unresponsive on vent Speech: None Comprehension: None Facial expressions: Normal Cranial Nerves: Pupils are sluggish. Doll's head eye movements are positive. No facial asymmetry is seen. Motor: Bulk and Tone is normal. Strength cannot be assessed, frequent tonic-clonic activity seen affecting right side of the body Sensory: Grossly intact for all the modalities of PP, LT and temp sense Reflexes: 1+ and symmetrical Cerebellar function: Cannot be assessed Toes: Equivocal Gait: Cannot be assessed Results - Labs CBC & BMP: 11/02/16 07:04 11/02/16 07:04 Assessment and Plan (1) Status epilepticus Status: Acute Assessment and plan: Keppra 1 g followed by 500 mg IV every 8 EEG is done but it is full of artifact. We will try to repeat EEG. Of note CT head revealed no acute abnormalities. Current Visit: Yes
[2016-11-02] MEDS: ENOXAPARIN 80 MG/0.8 ML SYRINGE SUBCUT SCH (15:16)
[2016-11-02] MEDS ORDERED: DEXTROSE 50% 25 GM/50 ML VIAL IV PRN (15:58)
[2016-11-02] MEDS ORDERED: GLUCAGON 1 MG VIAL IM PRN (15:58)
--- NOTE | 2016-11-02 17:37 | ECHO Report ---
RedmanChristiano Exam Date: 11/02/2016 15:07 Referring Physician: Technologist: Shirley Lombardi Age: 76 Ht (in): 73 Wt (lb): 190 Gender: M Exam Location: [facility] Echo Indications: resp failure, orthopnea, BPN, HTN, seizures, status post cardiac, pneumonia BP: 107 / 56 HR: 66 Rhythm: Sinus Technical Quality: IMPRESSIONS Normal left ventricular size, with moderate concentric hypertrophy. The apex is severely hypokinetic, the remaining segments have normal systolic thickening. Estimated left ventricular ejection fraction 40%. Grade 2 diastolic dysfunction. Mild mildly thickened mitral valve with mild mitral regurgitation. Mild aortic valve sclerosis without stenosis or regurgitation. MEASUREMENTS (Male / Female) Normal Values 2D ECHO LV Diastolic Diameter PLAX 4.5 cm 4.2 - 5.9 / 3.9 - 5.3 cm LV Systolic Diameter PLAX 3.4 cm LV Fractional Shortening PLAX 24.1 % IVS Diastolic Thickness 1.5 cm 0.6 - 1.0 / 0.6 - 0.9 cm LVPW Diastolic Thickness 1.4 cm 0.6 - 1.0 / 0.6 - 0.9 cm RV Internal Dim ED PLAX 2.4 cm Aortic Root Diameter 2.5 cm LA Systolic Diameter LX 3.6 cm 3.0 - 4.0 / 2.7 - 3.8 cm DOPPLER TR Peak Velocity 115.0 cm/s TR Peak Gradient 5.3 mmHg FINDINGS Left Ventricle Normal left ventricular size, with moderate concentric hypertrophy. The apex is severely hypokinetic, the remaining segments have normal systolic thickening. Estimated left ventricular ejection fraction 40%. Grade 2 diastolic dysfunction. Right Ventricle The right ventricle is normal in size, with normal systolic motion. Right Atrium Normal right atrial size. Left Atrium Normal left atrial size. Mitral Valve Mild mildly thickened mitral valve with mild mitral regurgitation. Aortic Valve Mild aortic valve sclerosis without stenosis or regurgitation. Tricuspid Valve Morphologically normal tricuspid valve. Trace tricuspid valve regurgitation. Insufficient data to estimate pulmonary artery systolic pressure. Pulmonic Valve Pulmonic valve not well visualized. Pericardium No pericardial effusion. Aorta Normal size aortic root and proximal ascending aorta. Nicolas Jerez (Electronically Signed) Final Date: 02 Nov 2016 17:36
[2016-11-02] MEDS: INSULIN REGULAR 100 UNIT/ML SUBCUT SCH (18:23)
--- NOTE | 2016-11-02 23:43 | Event Note ---
Care was discussed with family silverio. Family has made him a DNR. We will continue current level of care.
[2016-11-03] MEDS: INSULIN REGULAR 100 UNIT/ML SUBCUT SCH ×4 (00:42→18:07)
[2016-11-03] MEDS: PROPOFOL 1,000 MG/100 ML BOTTLE IV SCH ×10 (00:48→23:30)
[2016-11-03] MEDS: ENOXAPARIN 80 MG/0.8 ML SYRINGE SUBCUT SCH ×2 (02:54→14:16)
[2016-11-03 03:49] LABS: ABG Base Excess -4.2 MMOL/L (-2.5-2.5); ABG Oxygen Saturation 99.5 % (95-100); ABG PCO2 35.8 MM HG (35-48); ABG PH 7.367 (7.35-7.45); ABG TCO2 18.1 MMOL/L (23-27); Allen Test Positive; Pt O2 Delivery Device Ventilator
[2016-11-03] MEDS: CLINDAMYCIN INJ 900 MG in PREMIX 1 EACH IV SCH ×3 (04:18→20:51)
[2016-11-03 04:28] LABS: Hematocrit 35.9 VOL% (42.0-52.0); Immature Granulocytes % 0.7 %; Immature Granulocytes Absolute 0.15 #; Lymphocytes # 1.6 10*3/uL (1.4-4.0); Lymphocytes % 7.7 % (21.2-54.2); Mean Corpuscular HGB Conc 33.4 GM/DL (32-36); Mean Corpuscular Hemoglobin 28 PG (27-34); Mean Corpuscular Volume 84.1 FL (87-102); Mean Platelet Volume 12.1 FL (9.6-12.0); Monocytes # 1.9 10*3/uL (0.11-0.8); Monocytes % 8.8 % (1.7-12.7); Neutrophils # 17.5 10*3/uL (1.4-7.4); Neutrophils % 82.8 % (38.7-73.9); Platelet Count 192 T/CUMM (130-400); Red Blood Count 4.27 MC/CUMM (3.8-5.5); White Blood Count 21.2 T/CUMM (4-12)
[2016-11-03 04:54] LABS: Calcium 8.3 MG/DL (8.5-10.1); Osmolality,Calculated 290.1 MOS/KG (273-304); Potassium 4.7 MMOL/L (3.5-5.1)
[2016-11-03 04:57] LABS: Magnesium 1.8 MG/DL (1.8-2.4); Phosphorous 3.1 MG/DL (2.5-4.9); Prealbumin 14.3 MG/DL (20-40)
[2016-11-03 05:27] LABS: Lymphocytes 7 % (20-55); Segmented Neutrophils 85 % (50-85); Total Cells Counted 100
[2016-11-03 05:28] LABS: Hypochromasia 1+; Microcytosis Slight; Ovalocytes Slight; Platelet Estimate Adequate
[2016-11-03] MEDS: NOREPINEPHRINE 4 MG in SODIUM CHLORIDE 0.9% 246 ML IV SCH (05:51)
[2016-11-03] MEDS: SODIUM ACETATE 50 MEQ in SODIUM CHLORIDE 0.45% 1,000 ML IV SCH ×2 (07:42→18:40)
--- NOTE | 2016-11-03 07:52 | Pulmonology Progress Note ---
Pulmonary - PN: Subj Interval history: Patient s/p cardiac arrest, now in status epilepticus on the vent. On propofol, no acute issues overnight per the nurse Exam (Progress Note) - Constitutional Vitals: Period Temp Pulse Resp BP Sys/Rankin Pulse Ox Last 24 Hr 97.4 F-99.7 F 57-134 16-31 78-166/47-109 98-100 General appearance: mild distress - Head Head exam: Present: normal inspection - ENT ENT exam: Present: normal exam - Neck Neck exam: Present: normal inspection - Respiratory Respiratory exam: Present: clear to auscultation bilaterally - Cardiovascular Cardiovascular exam: Present: regular rate and rhythm - GI/Abdominal GI/Abdominal exam: Present: normal bowel sounds Results - Labs CBC & BMP: 11/03/16 03:55 11/03/16 03:55 Lab Results: I have reviewed the past 24 hour labs - Diagnostic Findings Procedure: Chest x-ray: image reviewed by me, report reviewed by me (reviewed image and report) Assessment and Plan (1) Respiratory failure requiring intubation Status: Acute Assessment and plan: Patient s/p cardiac arrest requiring intubation. Stable from a pulmonary standpoint, will continue to wean. Patient was made DNR last night, continue with other measures for now Current Visit: Yes
[2016-11-03] MEDS ORDERED: LEVOFLOXACIN INJ 750 MG in PREMIX 1 EACH IV SCH (08:00)
--- NOTE | 2016-11-03 08:35 | Cardiology Progress Note ---
Assessment and Plan (1) Status post cardiac Status: Acute Assessment and plan: 76-year-old male, who was transferred to [facility] after cardiac arrest. Ventricular tachycardia was suspected and he was shocked several times. He was orally intubated. EKG shows atrial fibrillation, IVCD I did not see documentation of the arrhythmia, that was shocked. Echo shows apical hypokinesis, with borderline troponin elevation. Differential includes to "sober versus true acute coronary syndrome. Currently, is hemodynamically stable. His neurological function remained very poor, and now he is not a candidate for hypothermia. He had ongoing seizures and neurology started seizure agents. He had recent cardiac evaluation, including cardiac catheterization by Dr. Dominguez recently. -Cardiac arrest. He had wide QRS tachycardia, and atrial fibrillation, now back in sinus rhythm/IVCD. Echo suggests Tako-Tsubo CMP. It is not clear whether this was the primary cause, or secondary to cardiac arrest. There is no WI. Borderline cardiac biomarkers, acute kidney injury, poor neurological status likely related to prolonged downtime. -Continue amiodarone drip. -His hemodynamics are stable, on low-dose pressor support, which was needed as his propofol was increased for status epilepticus. -TSH is suppressed and FT4 is elevated. He had thyreomegaly on recent ultrasound. Hyperthyroidism may have contributed to acute illness, although he does not appear to be thyrotoxic -Continue anticoagulation with LMWH. Adjust dose per GFR. Converted back from A. fib to sinus rhythm. PE as primary reason for arrest is unlikely. -If he makes meaningful neurological recovery, he would be candidate for an ICD. Current Visit: Yes (2) Atrial fibrillation with RVR Status: Chronic Current Visit: No (3) CHF (congestive heart failure) Status: Acute Current Visit: No (4) Ventricular tachycardia Status: Acute Current Visit: Yes (5) Status epilepticus Status: Acute Current Visit: Yes Cardiology - PN: Subj Interval history: He continues to seize continuously, propofol was increased. This led to hypotension, low-dose pressor was started. Exam (Progress Note) - Constitutional Vitals: Period Temp Pulse Resp BP Sys/Rankin Pulse Ox Last 24 Hr 97.4 F-99.7 F 57-116 16-31 78-166/47-109 98-100 General appearance: normal weight, over weight - Head Head exam: Present: normal inspection, normocephalic - Eye Eye exam: Absent: periorbital swelling, laceration to eyelids - ENT ENT exam: Present: normal external ear exam - Neck Neck exam: Present: normal inspection - Respiratory Respiratory exam: Present: clear to auscultation bilaterally - Cardiovascular Cardiovascular exam: Present: regular rate and rhythm - GI/Abdominal GI/Abdominal exam: Present: hypoactive bowel sounds - Extremities Exam Extremities exam: Present: normal inspection, normal capillary refill. Absent: edema - Neurological Exam Neurological exam: Present: altered, other (Fine tremor) - Skin Skin exam: Present: normal color, warm. Absent: cyanosis Result/EKG - Labs CBC & BMP: 11/03/16 03:55 11/03/16 03:55 Lab Results: I have reviewed the past 24 hour labs Labs: Laboratory Results - last 24 hr 11/02/16 11/02/16 11/02/16 07:04 07:04 07:04 WBC RBC Hgb Hct MCV MCH MCHC RDW Plt Count MPV Neut % (Auto) Lymph % (Auto) Hughes % (Auto) Eos % (Auto) Baso % (Auto) Neut # (Auto) Lymph # (Auto) Hughes # (Auto) Eos # (Auto) Baso # (Auto) Total Counted Immature Gran % Nucleated RBC % Immature Gran # Segmented Neutrophils Lymphocytes Monocytes Nucleated RBCs # Platelet Estimate Hypochromasia Microcytosis Ovalocytes ABG pH ABG pCO2 ABG pO2 ABG HCO3 ABG Total CO2 ABG O2 Saturation ABG Base Excess FiO2 Sodium Potassium Chloride Carbon Dioxide Anion Gap BUN Creatinine GFR Calculation BUN/Creatinine Ratio Glucose POC Glucose Calculated Osmolality Calcium Phosphorus Magnesium 2.0 Troponin I B-Natriuretic Peptide Prealbumin Triglycerides 45 Cholesterol 153 LDL Cholesterol 108.0 VLDL Cholesterol 9.0 HDL Cholesterol 45 Heart Disease Risk Ratio 3.40 Free T4 1.53 H TSH 3rd Generation < 0.005 L Urine Color Urine Appearance Urine pH Ur Specific [place] Urine Protein Urine Glucose (UA) Urine Ketones Urine Blood Urine Nitrate Urine Bilirubin Urine Urobilinogen Urine Leukocytes Urine RBC Urine WBC Ur Squamous Epith Cells Urine Mucus Urine Sperm Ur Culture Indicated? Urine Opiates Screen Ur Barbiturates Screen Ur Phencyclidine Scrn U Amphetamine/Methamph U Benzodiazepines Scrn U Cocaine Metab Screen U Cannabinoids Screen 11/02/16 11/02/16 11/02/16 08:04 08:16 08:16 WBC RBC Hgb Hct MCV MCH MCHC RDW Plt Count MPV Neut % (Auto) Lymph % (Auto) Hughes % (Auto) Eos % (Auto) Baso % (Auto) Neut # (Auto) Lymph # (Auto) Hughes # (Auto) Eos # (Auto) Baso # (Auto) Total Counted Immature Gran % Nucleated RBC % Immature Gran # Segmented Neutrophils Lymphocytes Monocytes Nucleated RBCs # Platelet Estimate Hypochromasia Microcytosis Ovalocytes ABG pH 7.136 L* ABG pCO2 60.0 H ABG pO2 283.0 H ABG HCO3 16.4 L ABG Total CO2 18.4 L ABG O2 Saturation 99.1 ABG Base Excess -10.3 L FiO2 Sodium Potassium Chloride Carbon Dioxide Anion Gap BUN Creatinine GFR Calculation BUN/Creatinine Ratio Glucose POC Glucose Calculated Osmolality Calcium Phosphorus Magnesium Troponin I B-Natriuretic Peptide Prealbumin Triglycerides Cholesterol LDL Cholesterol VLDL Cholesterol HDL Cholesterol Heart Disease Risk Ratio Free T4 TSH 3rd Generation Urine Color Yellow Urine Appearance Cloudy Urine pH 5.0 Ur Specific [place] 1.006 Urine Protein 100 Urine Glucose (UA) 150 Urine Ketones Negative Urine Blood Moderate Urine Nitrate Negative Urine Bilirubin Negative Urine Urobilinogen < 2.0 H Urine Leukocytes Negative Urine RBC 82 Urine WBC 8 Ur Squamous Epith Cells Occasional Urine Mucus Occasional Urine Sperm Occasional Ur Culture Indicated? Results to follow Urine Opiates Screen Negative Ur Barbiturates Screen Negative Ur Phencyclidine Scrn Negative U Amphetamine/Methamph Negative U Benzodiazepines Scrn Positive H U Cocaine Metab Screen Negative U Cannabinoids Screen Negative 11/02/16 11/02/16 11/02/16 12:59 12:59 13:20 WBC RBC Hgb Hct MCV MCH MCHC RDW Plt Count MPV Neut % (Auto) Lymph % (Auto) Hughes % (Auto) Eos % (Auto) Baso % (Auto) Neut # (Auto) Lymph # (Auto) Hughes # (Auto) Eos # (Auto) Baso # (Auto) Total Counted Immature Gran % Nucleated RBC % Immature Gran # Segmented Neutrophils Lymphocytes Monocytes Nucleated RBCs # Platelet Estimate Hypochromasia Microcytosis Ovalocytes ABG pH 7.209 L* ABG pCO2 40.0 ABG pO2 229.4 H ABG HCO3 15.6 L ABG Total CO2 16.8 L ABG O2 Saturation 99.3 ABG Base Excess -11.7 L FiO2 60.00 Sodium Potassium Chloride Carbon Dioxide Anion Gap BUN Creatinine GFR Calculation BUN/Creatinine Ratio Glucose POC Glucose Calculated Osmolality Calcium Phosphorus Magnesium Troponin I 2.600 H D B-Natriuretic Peptide Prealbumin Triglycerides Cholesterol LDL Cholesterol VLDL Cholesterol HDL Cholesterol Heart Disease Risk Ratio Free T4 1.58 H TSH 3rd Generation Urine Color Urine Appearance Urine pH Ur Specific [place] Urine Protein Urine Glucose (UA) Urine Ketones Urine Blood Urine Nitrate Urine Bilirubin Urine Urobilinogen Urine Leukocytes Urine RBC Urine WBC Ur Squamous Epith Cells Urine Mucus Urine Sperm Ur Culture Indicated? Urine Opiates Screen Ur Barbiturates Screen Ur Phencyclidine Scrn U Amphetamine/Methamph U Benzodiazepines Scrn U Cocaine Metab Screen U Cannabinoids Screen 11/02/16 11/02/16 11/02/16 16:45 18:18 23:54 WBC RBC Hgb Hct MCV MCH MCHC RDW Plt Count MPV Neut % (Auto) Lymph % (Auto) Hughes % (Auto) Eos % (Auto) Baso % (Auto) Neut # (Auto) Lymph # (Auto) Hughes # (Auto) Eos # (Auto) Baso # (Auto) Total Counted Immature Gran % Nucleated RBC % Immature Gran # Segmented Neutrophils Lymphocytes Monocytes Nucleated RBCs # Platelet Estimate Hypochromasia Microcytosis Ovalocytes ABG pH ABG pCO2 ABG pO2 ABG HCO3 ABG Total CO2 ABG O2 Saturation ABG Base Excess FiO2 Sodium Potassium Chloride Carbon Dioxide Anion Gap BUN Creatinine GFR Calculation BUN/Creatinine Ratio Glucose POC Glucose 156 H 94 Calculated Osmolality Calcium Phosphorus Magnesium Troponin I 3.910 H D B-Natriuretic Peptide Prealbumin Triglycerides Cholesterol LDL Cholesterol VLDL Cholesterol HDL Cholesterol Heart Disease Risk Ratio Free T4 TSH 3rd Generation Urine Color Urine Appearance Urine pH Ur Specific [place] Urine Protein Urine Glucose (UA) Urine Ketones Urine Blood Urine Nitrate Urine Bilirubin Urine Urobilinogen Urine Leukocytes Urine RBC Urine WBC Ur Squamous Epith Cells Urine Mucus Urine Sperm Ur Culture Indicated? Urine Opiates Screen Ur Barbiturates Screen Ur Phencyclidine Scrn U Amphetamine/Methamph U Benzodiazepines Scrn U Cocaine Metab Screen U Cannabinoids Screen 11/03/16 11/03/16 11/03/16 03:25 03:55 03:55 WBC 21.2 H RBC 4.27 Hgb 12.0 L Hct 35.9 L MCV 84.1 L MCH 28 MCHC 33.4 RDW 14.0 Plt Count 192 MPV 12.1 H Neut % (Auto) 82.8 H Lymph % (Auto) 7.7 L Hughes % (Auto) 8.8 Eos % (Auto) 0.0 Baso % (Auto) 0.0 Neut # (Auto) 17.5 H Lymph # (Auto) 1.6 Hughes # (Auto) 1.9 H Eos # (Auto) 0.0 Baso # (Auto) 0.0 Total Counted 100 Immature Gran % 0.7 Nucleated RBC % 0.0 Immature Gran # 0.15 Segmented Neutrophils 85 Lymphocytes 7 L Monocytes 8 Nucleated RBCs # 0.00 Platelet Estimate Adequate Hypochromasia 1+ Microcytosis Slight Ovalocytes Slight ABG pH 7.367 ABG pCO2 35.8 ABG pO2 199.0 H ABG HCO3 21.0 ABG Total CO2 18.1 L ABG O2 Saturation 99.5 ABG Base Excess -4.2 L FiO2 60.00 Sodium 142 Potassium 4.7 Chloride 109 H Carbon Dioxide 21 Anion Gap 16.7 H BUN 36 H D Creatinine 2.60 H GFR Calculation 33 BUN/Creatinine Ratio 13.00 Glucose 107 H POC Glucose Calculated Osmolality 290.1 Calcium 8.3 L Phosphorus Magnesium Troponin I B-Natriuretic Peptide Prealbumin Triglycerides Cholesterol LDL Cholesterol VLDL Cholesterol HDL Cholesterol Heart Disease Risk Ratio Free T4 TSH 3rd Generation Urine Color Urine Appearance Urine pH Ur Specific [place] Urine Protein Urine Glucose (UA) Urine Ketones Urine Blood Urine Nitrate Urine Bilirubin Urine Urobilinogen Urine Leukocytes Urine RBC Urine WBC Ur Squamous Epith Cells Urine Mucus Urine Sperm Ur Culture Indicated? Urine Opiates Screen Ur Barbiturates Screen Ur Phencyclidine Scrn U Amphetamine/Methamph U Benzodiazepines Scrn U Cocaine Metab Screen U Cannabinoids Screen 11/03/16 11/03/16 11/03/16 03:55 03:55 05:37 WBC RBC Hgb Hct MCV MCH MCHC RDW Plt Count MPV Neut % (Auto) Lymph % (Auto) Hughes % (Auto) Eos % (Auto) Baso % (Auto) Neut # (Auto) Lymph # (Auto) Hughes # (Auto) Eos # (Auto) Baso # (Auto) Total Counted Immature Gran % Nucleated RBC % Immature Gran # Segmented Neutrophils Lymphocytes Monocytes Nucleated RBCs # Platelet Estimate Hypochromasia Microcytosis Ovalocytes ABG pH ABG pCO2 ABG pO2 ABG HCO3 ABG Total CO2 ABG O2 Saturation ABG Base Excess FiO2 Sodium Potassium Chloride Carbon Dioxide Anion Gap BUN Creatinine GFR Calculation BUN/Creatinine Ratio Glucose POC Glucose 124 H Calculated Osmolality Calcium Phosphorus 3.1 Magnesium 1.8 Troponin I B-Natriuretic Peptide 709 H Prealbumin 14.3 L Triglycerides Cholesterol LDL Cholesterol VLDL Cholesterol HDL Cholesterol Heart Disease Risk Ratio Free T4 TSH 3rd Generation Urine Color Urine Appearance Urine pH Ur Specific [place] Urine Protein Urine Glucose (UA) Urine Ketones Urine Blood Urine Nitrate Urine Bilirubin Urine Urobilinogen Urine Leukocytes Urine RBC Urine WBC Ur Squamous Epith Cells Urine Mucus Urine Sperm Ur Culture Indicated? Urine Opiates Screen Ur Barbiturates Screen Ur Phencyclidine Scrn U Amphetamine/Methamph U Benzodiazepines Scrn U Cocaine Metab Screen U Cannabinoids Screen - EKG EKG results: interpreted by me
--- NOTE | 2016-11-03 08:51 | Hospitalist Progress Note ---
Hospitalist: Subjective Interval history: Patient continues with myoclonic clonic jerking but it is less severe. He is still intubated on the vent. No fever. Tube feedings have not been started. Exam - Constitutional Vitals: Period Temp Pulse Resp BP Sys/Rankin Pulse Ox Last 24 Hr 97.4 F-99.7 F 57-116 16-31 78-166/47-109 98-100 Exam: Intubated and sedated on the vent Pupils are equal and reactive to light, sclerae clear; ET tube in place Trachea midline, no JVD Regular rate and rhythm normal S1-S2 no obvious murmurs rubs or gallops Clear to auscultation diminished at the right lung base nonlabored breathing noted Abdomen is soft, hypoactive bowel sounds No warm and well perfused, no clubbing or cyanosis. Results - Labs CBC & BMP: 11/03/16 03:55 11/03/16 03:55 - Impressions (1) Acute hypercarbic and hypoxic respiratory failure suspect due to aspiration pneumonia (POA) Status: Acute Assessment and plan: This is a 76-year-old -[place] male who was transferred from [facility] intubated and sedated with propofol. - Admit ABGs: pH of 7.13, PCO2 of 60, PO2 283, HCO3 of 16.4. - Chest x-ray shows endotracheal tube in place with distal tip appropriately at thoracic inlet and RML and RLL pneumonia - F/U Blood and sputum cultures have been ordered. Cont antibiotics. - Cont in ICU. - Pulmonology following for ventilation management. Current Visit: Yes (2) Pneumonia Status: Acute Assessment and plan: s/p FOB 11/02 - Cont Cleocin. F/U Sputum culture. Cont bronchodilators Current Visit: Yes (3) Atrial fibrillation with RVR- likely driven by hyperthyroidism Status: Resolved Assessment and plan: - Prior left heart catheterization revealed no significant abnormalities. - Patient takes Eliquis at home. Currently at home. - Cont amiodarone drip and his rate is controlled. - ECHO pending. - Cardiology following. Current Visit: No (4) Hyperthyroidism Status: Acute Assessment and plan: - thyroid ultrasound showed Diffuse inhomogeneity without a defined focal solid or cystic mass present. - TSH was low and T4 levels elevated - Cont methimazole Current Visit: No (5) Elevated troponins s/p cardiac arrest with Vtach r/o ACS Status: Acute Assessment and plan: - Troponin 1.160 on admission. Serial troponin. ECHO pending. Cardiology following. Current Visit: No (6) Shock due to possible cardiogenic vs. possible PE vs. possible septic Status: Chronic Current Visit: No - Cont Levophed and wean as tolerated. Goal MAP >/= 65. (7) Status epilepticus vs. myoclonic jerks due to anoxic brain injury - Neurology input appreciated. EEG showed artifact per neuro. Repeat EEG pending. Neuro to read and given update. Cont Keppra for now (8) Acute renal failure- likely ischemic - Cont IVF and vasoactive support. - Serial labs - Avoid nephrotoxic agents - Consult renal - renal U/S (9) BPH (benign prostatic hyperplasia) Status: Chronic Current Visit: No Other: Tubefeeds. GI/DVT prophylaxis: Protonix and Lovenox Pt is DNR Overall prognosis is guarded. D/W nurse, daughter and family. I will be away several days. One of my associates will follow in my absence.
[2016-11-03] MEDS: PANTOPRAZOLE 40 MG VIAL IV SCH (08:59)
[2016-11-03] MEDS: methIMAzole 5 MG TABLET PO SCH ×3 (09:00→20:52)
--- NOTE | 2016-11-03 10:17 | EKG Report ---
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
--- NOTE | 2016-11-03 10:22 | XRay Report ---
History: Patient on ventilator Date: 11/03/2016 Study: Chest x-ray AP portable Comparison exam: 11/02/2016 The endotracheal tube is well positioned. A nasogastric tube enters the stomach. The cardiac silhouette is upper normal in size. The mediastinal contours are stable. The pulmonary vasculature is slightly prominent. There is some patchy and hazy edema/infiltrate in the lower lungs. This is slightly increased. There is some minor bilateral pleural effusion. The osseous structures are similar. Impression: Continued bibasilar pulmonary edema/infiltrate, perhaps minimally increased compared to the previous study. Otherwise grossly similar PROCEDURE INTERPRETED AT [facility] DEPARTMENT OF RADIOLOGY Final Report Signed by: Dr. Elise Thomason
--- NOTE | 2016-11-03 12:40 | Nephrology Consult Note ---
History of Present Illness Chief complaint: arf History of present illness: Mr. Redman is a 76 year old male with a history of hypothyroidism and recent onset of atrial fibrillation. He underwent cardiac catheterization recently and with his arrhythmia been maintained on Eliquis. He presented to an outside emergency room and sustained a cardiopulmonary arrest and a prolonged resuscitation was successful in restoring a rhythm and pulse. He is intubated now and unresponsive. The only activity he would exhibit prior to sedation was seizure activity and he is on Keppra now along with dipper Van to prevent seizure activity. His urine output is been approximately 10-20 cc/h since admission he has required vasopressor support but that is being weaned. His chest is clear but there is evidence of some increased volume in the bases on chest x-ray. His serum creatinine was 1.6 on admission is 2.5 today. Impression acute renal failure secondary to shock. #2 hypothyroidism #3 atrial fibrillation with ventricular arrhythmias during his arrest. #4 anoxic brain injury Plan will have to be judicious with fluid administration until urine output returns. Hopefully his renal injury is less than maximal and he will be able to recover before it causes significant problems for him. 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 We will follow with you thank Home Medications Medication Instructions Recorded Confirmed Type Lisinopril [Prinivil] 20 mg PO DAILY 10/08/16 11/02/16 History Tamsulosin [Flomax] 0.4 mg PO DAILY 10/08/16 11/02/16 History Apixaban [Eliquis] 5 mg PO BID #60 tablet 10/09/16 11/02/16 Rx Ascorbic Acid Tab [Vitamin C Tab] 1,000 mg PO BID #60 tablet 10/09/16 11/02/16 Rx Diltiazem Cd Cap [Cardizem CD] 240 mg PO DAILY #30 capsule 10/09/16 11/02/16 Rx methIMAzole [Tapazole] 5 mg PO TID #90 tablet 10/09/16 11/02/16 Rx Metoprolol Succinate Xl [Toprol Xl] 100 mg PO DAILY 11/02/16 11/02/16 History Allergies Allergy/AdvReac Type Severity Reaction Status Date / Time Penicillins Allergy RASH Verified 11/02/16 06:58 Medical,Surgical,& Family Hx - Medical History Cardio: History of: Cardiac Dysrhythmia, CAD, Hypertension Neurology: No history of: Cerebrovascular Accident, Seizures Endocrine: History of: Thyroid Disorder (hyperthyroidism) Respiratory: History of: Pneumonia Genitourinary: History of: Prostate Problems - Surgical History Cardiac Surgeries: Sugical HX of: Cardiac Catheterization Reproductive Surgeries: Surgical HX of;: Prostate Surgery - Family History Family History: Reports;: Family Heart Disease, Family Hypertension - Social History Smoking Status: Former smoker Frequency of Alcohol Use: Rarely Type of Drug Use: None, Unknown Review of Systems ROS unobtainable: due to endotracheal tube 12 point system: reviewed and no additional remarkable complaints except as stated Exam - Vital Signs Vital signs: Period Temp Pulse Resp BP Sys/Rankin Pulse Ox Last 24 Hr 98.0 F-99.7 F 57-78 16-31 78-142/47-78 98-100 - General Appearance General appearance: well-developed, well-nourished, appears started age EENT: ATNC Neck: no JVD, no thyromegaly, no carotid bruit, supple Respiratory: no kyphosis, no scoliosis Cardiology: no murmurs, no rub, no gallops, no edema, regular rate, regular rhythm, normal S1, normal S2 Gastrointestinal: normoactive bowel sounds Integumentary: no rash, warm and dry Neurologic: no focal deficit, no asterixis, alert and oriented x3, reflexes 2+ and symmetric, gait normal, strength 5/5 Musculoskeletal: no deformities, no erythema, no cyanosis, no clubbing Psychiatric: mood/affect appropriate, cooperative Results - Labs CBC & BMP: 11/03/16 03:55 11/03/16 03:55 Assessment and Plan (1) ARF (acute renal failure) Status: Acute Assessment and plan: Maintain euvolemia and systolic bp over 100 Current Visit: Yes (2) Hyperthyroidism Status: Chronic Current Visit: No Specialty Discharge - Follow Up or Referrals - Speciality Discharge Instructions Nephrology Instructions: We will follow. We will decrease his maintenance IV fluids in view of his oliguria.
[2016-11-03] MEDS: AMIODARONE INJ 450 MG in DEXTROSE 5% 241 ML IV SCH (14:12)
[2016-11-04] MEDS: PROPOFOL 1,000 MG/100 ML BOTTLE IV SCH ×9 (02:25→23:55)
[2016-11-04 03:14] LABS: Allen Test Positive; Pt O2 Delivery Device Ventilator
[2016-11-04 03:15] LABS: ABG Base Excess -2.4 MMOL/L (-2.5-2.5); ABG HCO3 22.7 MMOL/L (20-26); ABG Oxygen Saturation 98.7 % (95-100); ABG PCO2 40.7 MM HG (35-48); ABG PH 7.365 (7.35-7.45); ABG PO2 173.2 MM HG (80-95)
[2016-11-04] MEDS: ENOXAPARIN 80 MG/0.8 ML SYRINGE SUBCUT SCH (03:23)
[2016-11-04 03:47] LABS: Basophils % 0.1 % (0.0-0.8); Immature Granulocytes % 0.5 %; Immature Granulocytes Absolute 0.09 #; Lymphocytes # 1.6 10*3/uL (1.4-4.0); Lymphocytes % 9.8 % (21.2-54.2); Mean Corpuscular HGB Conc 33.3 GM/DL (32-36); Mean Corpuscular Hemoglobin 29 PG (27-34); Mean Corpuscular Volume 85.5 FL (87-102); Mean Platelet Volume 12.1 FL (9.6-12.0); Monocytes # 1.6 10*3/uL (0.11-0.8); Monocytes % 9.8 % (1.7-12.7); Neutrophils # 13.3 10*3/uL (1.4-7.4); Neutrophils % 79.8 % (38.7-73.9); Platelet Count 144 T/CUMM (130-400); Red Blood Count 4.21 MC/CUMM (3.8-5.5); Red Cell Distribution Width 14.1 % (9.3-17.3); White Blood Count 16.7 T/CUMM (4-12)
[2016-11-04 04:18] LABS: Calcium 8.4 MG/DL (8.5-10.1); Osmolality,Calculated 292.3 MOS/KG (273-304); Potassium 4.5 MMOL/L (3.5-5.1)
[2016-11-04 04:22] LABS: Albumin 2.4 G/DL (3.4-5.0); Bilirubin,Total 0.6 MG/DL (0.2-1.0); Osmolality,Calculated 293.3 MOS/KG (273-304); Phosphorous 4.5 MG/DL (2.5-4.9); Potassium 4.6 MMOL/L (3.5-5.1); Total Protein 5.6 G/DL (6.4-8.3)
[2016-11-04] MEDS: CLINDAMYCIN INJ 900 MG in PREMIX 1 EACH IV SCH ×3 (05:05→21:03)
[2016-11-04] MEDS: AMIODARONE INJ 450 MG in DEXTROSE 5% 241 ML IV SCH ×2 (05:23→21:44)
[2016-11-04] MEDS: NOREPINEPHRINE 4 MG in SODIUM CHLORIDE 0.9% 246 ML IV SCH (06:41)
--- NOTE | 2016-11-04 07:45 | Pulmonology Progress Note ---
Pulmonary - PN: Subj Interval history: No acute events overnight. Patient remains stable. Propofol weaned down, no return of seizure activity so far Exam (Progress Note) - Constitutional Vitals: Period Temp Pulse Resp BP Sys/Rankin Pulse Ox Last 24 Hr 98.6 F-99.8 F 60-79 16-29 114-170/51-84 98-100 General appearance: no acute distress - Head Head exam: Present: normal inspection - Respiratory Respiratory exam: Present: clear to auscultation bilaterally - Cardiovascular Cardiovascular exam: Present: regular rate and rhythm - GI/Abdominal GI/Abdominal exam: Present: normal bowel sounds Results - Labs CBC & BMP: 11/04/16 03:15 11/04/16 03:15 Lab Results: I have reviewed the past 24 hour labs - Diagnostic Findings Procedure: Chest x-ray: image reviewed by me (unchanged) Assessment and Plan (1) Respiratory failure requiring intubation Status: Acute Assessment and plan: Patient s/p cardiac arrest requiring intubation. Stable from a pulmonary standpoint, will continue to wean. Does not appear ot be having seizure activity currently but if there is any suggestion of that, would restart the propofol and wait until neurology can evaluate. Current Visit: Yes
--- NOTE | 2016-11-04 07:56 | Cardiology Progress Note ---
Assessment and Plan (1) Status post cardiac Status: Acute Assessment and plan: 76-year-old male, who was transferred to [facility] after cardiac arrest. Ventricular tachycardia was suspected and he was shocked several times. He was orally intubated. EKG shows atrial fibrillation, IVCD I did not see documentation of the arrhythmia, that was shocked. Echo shows apical hypokinesis, with borderline troponin elevation. Differential includes to "sober versus true acute coronary syndrome. Currently, is hemodynamically stable. His neurological function remained very poor, and now he is not a candidate for hypothermia. He had ongoing seizures and neurology started seizure agents. He had recent cardiac evaluation, including cardiac catheterization by Dr. Dominguez recently. -Cardiac arrest. He had wide QRS tachycardia, and atrial fibrillation, now back in sinus rhythm/IVCD. Echo suggests Tako-Tsubo CMP. It is not clear whether this was the primary cause, or secondary to cardiac arrest. There is no OH. Borderline cardiac biomarkers, acute kidney injury, poor neurological status likely related to prolonged downtime. He arrived too late to be a candidate for hypothermia. -Continue amiodarone drip. -Start metoprolol 25 mg twice daily. Will increase dose, as tolerated by blood pressure. Initially required some low-dose pressors, which were weaned off. -TSH is suppressed and FT4 is elevated. He had thyreomegaly on recent ultrasound. Hyperthyroidism may have contributed to acute illness, although he does not appear to be thyrotoxic -Anticoagulation had to be stopped due to suspected upper GI bleed. If this resolves and he is not high risk of bleeding, recommend to resume, was in A. fib , was recently cardioverted. PE as primary reason for arrest is unlikely. -If he makes meaningful neurological recovery, he would be candidate for an ICD. Current Visit: Yes (2) Atrial fibrillation with RVR Status: Chronic Current Visit: No (3) CHF (congestive heart failure) Status: Acute Current Visit: No (4) Ventricular tachycardia Status: Acute Current Visit: Yes (5) Status epilepticus Status: Acute Current Visit: Yes Cardiology - PN: Subj Interval history: He continues to have continuous seizure activity, mostly involving the right side, and sedation is cut off. Sinus rhythm, with frequent PACs, no recurrence of ventricular tachyarrhythmia. Blood pressure is elevated. Exam (Progress Note) - Constitutional Vitals: Period Temp Pulse Resp BP Sys/Rankin Pulse Ox Last 24 Hr 98.6 F-99.8 F 60-79 16-29 118-170/51-84 98-100 General appearance: normal weight, over weight - Head Head exam: Present: normal inspection, normocephalic - Eye Eye exam: Absent: periorbital swelling, laceration to eyelids - ENT ENT exam: Present: normal external ear exam - Neck Neck exam: Present: normal inspection - Respiratory Respiratory exam: Present: clear to auscultation bilaterally - Cardiovascular Cardiovascular exam: Present: irregular rhythm - GI/Abdominal GI/Abdominal exam: Present: hypoactive bowel sounds. Absent: distended - Extremities Exam Extremities exam: Present: normal inspection, normal capillary refill. Absent: edema - Neurological Exam Neurological exam: Present: other (Unresponsive, fine tremors in the right upper extremity) - Skin Skin exam: Present: normal color, warm. Absent: cyanosis Result/EKG - Labs CBC & BMP: 11/04/16 03:15 11/04/16 03:15 Lab Results: I have reviewed the past 24 hour labs Labs: Laboratory Results - last 24 hr 11/03/16 11/04/16 11/04/16 11:55 03:05 03:15 WBC 16.7 H RBC 4.21 Hgb 12.0 L Hct 36.0 L MCV 85.5 L MCH 29 MCHC 33.3 RDW 14.1 Plt Count 144 D MPV 12.1 H Neut % (Auto) 79.8 H Lymph % (Auto) 9.8 L [place] % (Auto) 9.8 Eos % (Auto) 0.0 Baso % (Auto) 0.1 Neut # (Auto) 13.3 H Lymph # (Auto) 1.6 [place] # (Auto) 1.6 H Eos # (Auto) 0.0 Baso # (Auto) 0.0 Immature Gran % 0.5 Nucleated RBC % 0.0 Immature Gran # 0.09 Nucleated RBCs # 0.00 ABG pH 7.365 ABG pCO2 40.7 ABG pO2 173.2 H ABG HCO3 22.7 ABG Total CO2 24.0 ABG O2 Saturation 98.7 ABG Base Excess -2.4 FiO2 50.00 Sodium Potassium Chloride Carbon Dioxide Anion Gap BUN Creatinine GFR Calculation BUN/Creatinine Ratio Glucose POC Glucose 110 H Calculated Osmolality Calcium Phosphorus Magnesium Total Bilirubin AST ALT Alkaline Phosphatase Total Protein Albumin Globulin Albumin/Globulin Ratio 11/04/16 11/04/16 03:15 03:15 WBC RBC Hgb Hct MCV MCH MCHC RDW Plt Count MPV Neut % (Auto) Lymph % (Auto) [place] % (Auto) Eos % (Auto) Baso % (Auto) Neut # (Auto) Lymph # (Auto) [place] # (Auto) Eos # (Auto) Baso # (Auto) Immature Gran % Nucleated RBC % Immature Gran # Nucleated RBCs # ABG pH ABG pCO2 ABG pO2 ABG HCO3 ABG Total CO2 ABG O2 Saturation ABG Base Excess FiO2 Sodium 141 141 Potassium 4.5 4.6 Chloride 107 108 H Carbon Dioxide 23 23 Anion Gap 15.5 H 14.6 BUN 46 H D 48 H Creatinine 3.10 H 3.10 H GFR Calculation 27 27 BUN/Creatinine Ratio 14.00 15.00 Glucose 93 95 POC Glucose Calculated Osmolality 292.3 293.3 Calcium 8.4 L 8.0 L Phosphorus 4.5 Magnesium 2.0 Total Bilirubin 0.60 AST 105 H ALT 45 Alkaline Phosphatase 67 Total Protein 5.6 L Albumin 2.4 L Globulin 3.2 Albumin/Globulin Ratio 0.7 L - EKG EKG results: interpreted by me
[2016-11-04] MEDS: PANTOPRAZOLE 40 MG VIAL IV SCH (08:07)
[2016-11-04] MEDS: methIMAzole 5 MG TABLET PO SCH ×3 (08:07→20:13)
--- NOTE | 2016-11-04 08:16 | XRay Report ---
History: Shortness of breath Date: 11/04/2016 Study: Chest x-ray AP portable Comparison exam: 11/03/2016 The endotracheal and nasogastric tubes remain in place. The cardiac silhouette is upper normal in size. The pulmonary vasculature is slightly prominent. The mediastinal contours are unchanged. There is continued patchy and hazy edema/infiltrate in the lower lungs, the same if not slightly increased. There is mild bilateral pleural effusion, more on the left, without change. Osseous structures are similar. Impression: Continued bibasilar edema/infiltrate, the same or minimally increased. PROCEDURE INTERPRETED AT [facility] DEPARTMENT OF RADIOLOGY Final Report Signed by: Dr. Elise Thomason
--- NOTE | 2016-11-04 08:31 | Hospitalist Progress Note ---
Assessment and Plan (1) Respiratory failure requiring intubation Status: Acute Current Visit: Yes (2) Status post cardiac Status: Acute Current Visit: Yes (3) CHF (congestive heart failure) Status: Acute Current Visit: No (4) Atrial fibrillation with RVR Status: Chronic Current Visit: No (5) Pneumonia Status: Acute Current Visit: Yes (6) Seizures Status: Acute Current Visit: Yes (7) Hypertension Status: Chronic Assessment and plan: -Patient remains sedated and intubated on the ventilator -Continue IV antibiotics with Cleocin for treatment of pneumonia, likely secondary to aspiration -Cardiology and pulmonology consult, will continue to follow recommendations -Patient currently on Keppra, no seizure-like activity today, seizures felt to be secondary to anoxic brain injury, neurology consulted EEG report pending -Continue amiodarone infusion, pulse rate is not regular -I discussed the patient's prognosis with his family, they are considering discontinuation of the ventilator, they will decide within the next 24-48 hours Current Visit: No Qualifiers: Hypertension type: essential hypertension Qualified Code(s): I10 - Essential (primary) hypertension Hospitalist: Subjective Interval history: The patient remains intubated and sedated. He has had some elevations of his blood pressure overnight. Also he has been noted to have seizures, the patient has no seizure-like activity during my visit. There has been no meaningful improvement of the patient's medical condition. Remains in ICU. Exam - Constitutional Vitals: Period Temp Pulse Resp BP Sys/Rankin Pulse Ox Last 24 Hr 98.6 F-99.8 F 61-80 16-29 119-176/51-84 98-100 General appearance: other (Patient is intubated and sedated) - Head Head exam: Present: normal inspection - ENT ENT exam: Present: other (Patient intubated) - Respiratory Respiratory exam: Present: clear to auscultation bilaterally. Absent: accessory muscle use - Cardiovascular Cardiovascular exam: Present: regular rate and rhythm - GI/Abdominal GI/Abdominal exam: Present: hypoactive bowel sounds, soft - Extremities Exam Extremities exam: Absent: edema - Neurological Exam Neurological exam: Present: other (Sedated) - Psychiatric Psychiatric exam: Present: other - Skin Skin exam: Present: normal color Results - Labs CBC & BMP: 11/04/16 03:15 11/04/16 03:15 Lab Results: I have reviewed the past 24 hour labs
[2016-11-04] MEDS ORDERED: METOPROLOL TARTRATE 25 MG TABLET PO SCH (09:00)
--- NOTE | 2016-11-04 11:32 | Nephrology Progress Note ---
Nephrology - PN: Subj Interval history: Mr. Redman is seen in follow-up of his acute renal failure following cardiopulmonary arrest. He is making urine and is now nonoliguric. His creatinine is rising at less than in a different rate. He has a creatinine of 3.1 today and electrolytes are stable with a measured bicarb 23. Will continue to give the sodium acetate and his IV fluids for now but will probably be able to stop that tomorrow since with some return of kidney function he should be able to maintain his acid-base status. His blood pressures 170 systolic off pressors. He remains unresponsive and does seize off sedation. 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 Overall outlook is poor Exam (PN)-Nephrology - Vital Signs Vital signs: Period Temp Pulse Resp BP Sys/Rankin Pulse Ox Last 24 Hr 98.9 F-99.8 F 62-80 16-29 119-176/51-84 100-100 - Lab 11/04/16 03:15 11/04/16 03:15 Most recent lab results ABG pH 7.365 (7.35-7.45) 11/04/16 03:05 ABG pCO2 40.7 MM HG (35-48) 11/04/16 03:05 ABG pO2 173.2 MM HG (80-95) H 11/04/16 03:05 ABG HCO3 22.7 MMOL/L (20-26) 11/04/16 03:05 ABG O2 Saturation 98.7 % (95-100) 11/04/16 03:05 Calcium 8.0 MG/DL (8.5-10.1) L 11/04/16 03:15 Phosphorus 4.5 MG/DL (2.5-4.9) 11/04/16 03:15 Magnesium 2.0 MG/DL (1.8-2.4) 11/04/16 03:15 Assessment and Plan (1) ARF (acute renal failure) Status: Acute Assessment and plan: Maintain euvolemia and systolic bp over 100 Current Visit: Yes (2) Hyperthyroidism Status: Chronic Current Visit: No
[2016-11-04] MEDS ORDERED: METOPROLOL TARTRATE 25 MG TABLET PO ONE (12:39)
[2016-11-04] MEDS: SODIUM ACETATE 50 MEQ in SODIUM CHLORIDE 0.45% 1,000 ML IV SCH (14:29)
[2016-11-04] MEDS ORDERED: METOPROLOL TARTRATE 50 MG TABLET ONE (19:31)
[2016-11-04] MEDS: METOPROLOL TARTRATE 50 MG TABLET PO SCH (20:13)
[2016-11-05 02:41] LABS: ABG Base Excess -1.8 MMOL/L (-2.5-2.5); ABG HCO3 25.2 MMOL/L (20-26); ABG Oxygen Saturation 98.8 % (95-100); ABG PCO2 52.7 MM HG (35-48); ABG PH 7.298 (7.35-7.45); ABG PO2 165.8 MM HG (80-95); ABG TCO2 26.8 MMOL/L (23-27); Allen Test Positive; Pt O2 Delivery Device Ventilator
[2016-11-05] MEDS: PROPOFOL 1,000 MG/100 ML BOTTLE IV SCH ×5 (03:46→13:47)
[2016-11-05] MEDS: CLINDAMYCIN INJ 900 MG in PREMIX 1 EACH IV SCH ×2 (04:53→13:46)
[2016-11-05 04:57] LABS: Basophils % 0.1 % (0.0-0.8); Eosinophils % 0.1 % (0.00-10.9); Hematocrit 38.7 VOL% (42.0-52.0); Hemoglobin 12.8 GM/DL (14.0-18.0); Immature Granulocytes % 0.5 %; Immature Granulocytes Absolute 0.08 #; Lymphocytes # 1.7 10*3/uL (1.4-4.0); Lymphocytes % 11.3 % (21.2-54.2); Mean Corpuscular HGB Conc 33.1 GM/DL (32-36); Mean Corpuscular Hemoglobin 29 PG (27-34); Mean Corpuscular Volume 86.4 FL (87-102); Mean Platelet Volume 12.7 FL (9.6-12.0); Monocytes # 1.6 10*3/uL (0.11-0.8); Monocytes % 10.5 % (1.7-12.7); NRBC # 0.02 10*3/uL; Neutrophils # 11.7 10*3/uL (1.4-7.4); Neutrophils % 77.5 % (38.7-73.9); Platelet Count 112 T/CUMM (130-400); Red Blood Count 4.48 MC/CUMM (3.8-5.5); Red Cell Distribution Width 13.8 % (9.3-17.3); White Blood Count 15.1 T/CUMM (4-12)
[2016-11-05 05:07] LABS: Calcium 8.2 MG/DL (8.5-10.1); Osmolality,Calculated 293.3 MOS/KG (273-304); Potassium 4.8 MMOL/L (3.5-5.1)
[2016-11-05 05:22] LABS: Band Neutrophils 1 % (0-10); Lymphocytes 7 % (20-55); Myelocytes 1 %; Segmented Neutrophils 86 % (50-85)
[2016-11-05 05:23] LABS: Platelet Estimate Adequate; Total Cells Counted 100
[2016-11-05] MEDS ORDERED: hydrALAZINE 20 MG/1 ML VIAL IV PRN (07:41)
--- NOTE | 2016-11-05 07:47 | Cardiology Progress Note ---
Assessment and Plan - Time spent with patient Time spent with patient: Greater than 30 minutes (1) Respiratory failure requiring intubation Status: Acute Current Visit: Yes (2) Status post cardiac Status: Acute Assessment and plan: As per HPI. Make adjustments to antiarrhythmics. Supportive measures through this current situation. Current Visit: Yes (3) Seizures Status: Acute Current Visit: Yes (4) Ventricular tachycardia Status: Acute Current Visit: Yes (5) ARF (acute renal failure) Status: Acute Current Visit: Yes Cardiology - PN: Subj Interval history: This 76-year-old gentleman previously undergoing left heart catheterization on by Dr. Dale Dominguez that showed no evidence of high-grade epicardial stenosis but diffuse small vessel disease with no evidence of need for intervention or bypass grafting. 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 He was not a candidate for hypothermia and he has some degree, which is unidentifiable at this point, a presumed hypoxic brain injury. The patient also had acute renal injury and renal failure. This is been followed by Dr. Yoo this over the weekend. I am assuming care for Dr. Jerez. The patient has been on infusion of amiodarone since admission he is NG tube appears to be working I will convert amiodarone to by nasogastric tube. Continue his beta-aguilar at this time. Exam (Progress Note) - Constitutional Vitals: Period Temp Pulse Resp BP Sys/Rankin Pulse Ox Last 24 Hr 99 F-100 F 63-80 16-19 139-176/59-85 100-100 General appearance: over weight - Head Head exam: Present: normal inspection - Eye Eye exam: Present: EOMI Pupils: Present: VISHNU - ENT ENT exam: Present: normal exam - Respiratory Respiratory exam: Present: clear to auscultation bilaterally - Cardiovascular Cardiovascular exam: Present: regular rate and rhythm (The patient's BMI appears to be slightly laterally placed. I did not hear any gallop.) - GI/Abdominal GI/Abdominal exam: Present: normal bowel sounds - Extremities Exam Extremities exam: Present: normal inspection - Neurological Exam Neurological exam: Present: other (Patient does not give response to verbal or tactile stimuli. Recently turned off the sedation just moments ago.) - Skin Skin exam: Present: normal color, warm, dry Result/EKG - Labs CBC & BMP: 11/05/16 03:46 11/05/16 03:46 Labs: Laboratory Results - last 24 hr 11/05/16 11/05/16 11/05/16 02:40 03:46 03:46 WBC 15.1 H RBC 4.48 Hgb 12.8 L Hct 38.7 L MCV 86.4 L MCH 29 MCHC 33.1 RDW 13.8 Plt Count 112 L D MPV 12.7 H Neut % (Auto) 77.5 H Lymph % (Auto) 11.3 L [place] % (Auto) 10.5 Eos % (Auto) 0.1 Baso % (Auto) 0.1 Neut # (Auto) 11.7 H Lymph # (Auto) 1.7 [place] # (Auto) 1.6 H Eos # (Auto) 0.0 Baso # (Auto) 0.0 Total Counted 100 Immature Gran % 0.5 Nucleated RBC % 0.1 Immature Gran # 0.08 Segmented Neutrophils 86 H Band Neutrophils 1 Lymphocytes 7 L Monocytes 5 Myelocytes 1 Nucleated RBCs # 0.02 Platelet Estimate Adequate ABG pH 7.298 L ABG pCO2 52.7 H ABG pO2 165.8 H ABG HCO3 25.2 ABG Total CO2 26.8 ABG O2 Saturation 98.8 ABG Base Excess -1.8 FiO2 50.00 Sodium 141 Potassium 4.8 Chloride 109 H Carbon Dioxide 23 Anion Gap 13.8 BUN 50 H Creatinine 2.80 H GFR Calculation 31 BUN/Creatinine Ratio 17.00 Glucose 104 Calculated Osmolality 293.3 Calcium 8.2 L
[2016-11-05] MEDS: METOPROLOL TARTRATE 50 MG TABLET PO SCH (08:51)
[2016-11-05] MEDS: methIMAzole 5 MG TABLET PO SCH ×2 (08:51→15:07)
[2016-11-05] MEDS: PANTOPRAZOLE 40 MG VIAL IV SCH (08:51)
[2016-11-05] MEDS ORDERED: AMIODARONE 200 MG TABLET PO SCH (09:00)
--- NOTE | 2016-11-05 09:25 | Pulmonology Progress Note ---
Pulmonary - PN: Subj Interval history: No acute events and no significant clinical change Exam (Progress Note) - Constitutional Vitals: Period Temp Pulse Resp BP Sys/Rankin Pulse Ox Last 24 Hr 99 F-100 F 63-79 16-18 139-174/59-85 100-100 General appearance: no acute distress - Head Head exam: Present: normal inspection - Respiratory Respiratory exam: Present: clear to auscultation bilaterally - Cardiovascular Cardiovascular exam: Present: regular rate and rhythm - GI/Abdominal GI/Abdominal exam: Present: normal bowel sounds Results - Labs CBC & BMP: 11/05/16 03:46 11/05/16 03:46 Lab Results: I have reviewed the past 24 hour labs Assessment and Plan (1) Respiratory failure requiring intubation Status: Acute Assessment and plan: Patient s/p cardiac arrest requiring intubation. Stable from a pulmonary standpoint, will continue to wean. Propofol off this morning and having some tremor of the mouth. Needs reeval by Neurology and possible repeat EEG. Current Visit: Yes
--- NOTE | 2016-11-05 09:26 | Nephrology Progress Note ---
Nephrology - PN: Subj Interval history: Mr. Redman is seen in follow-up of his acute renal failure. He is dropped his creatinine now to 2.8. He remains unresponsive and exhibited seizure activity with movement of his jaw and chin. He remains on sedation to manage that seizure activity. Chest is clear. 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 [place] is grim Exam (PN)-Nephrology - Vital Signs Vital signs: Period Temp Pulse Resp BP Sys/Rankin Pulse Ox Last 24 Hr 99 F-100 F 63-79 16-18 139-174/59-85 100-100 - Lab 11/05/16 03:46 11/05/16 03:46 Most recent lab results ABG pH 7.298 (7.35-7.45) L 11/05/16 02:40 ABG pCO2 52.7 MM HG (35-48) H 11/05/16 02:40 ABG pO2 165.8 MM HG (80-95) H 11/05/16 02:40 ABG HCO3 25.2 MMOL/L (20-26) 11/05/16 02:40 ABG O2 Saturation 98.8 % (95-100) 11/05/16 02:40 Calcium 8.2 MG/DL (8.5-10.1) L 11/05/16 03:46 Phosphorus 4.5 MG/DL (2.5-4.9) 11/04/16 03:15 Magnesium 2.0 MG/DL (1.8-2.4) 11/04/16 03:15 Assessment and Plan (1) ARF (acute renal failure) Status: Acute Assessment and plan: Maintain euvolemia and systolic bp over 100 Current Visit: Yes (2) Hyperthyroidism Status: Chronic Current Visit: No
[2016-11-05] MEDS ORDERED: FUROSEMIDE 40 MG/4 ML VIAL IV SCH (09:30)
--- NOTE | 2016-11-05 09:55 | Hospitalist Progress Note ---
Assessment and Plan (1) History of cardiac arrest Status: Acute Assessment and plan: 1)v tach arrest after intubation at outside hospital- afib with RVR followed that. On arrival here he had cath that showed no sig abnormalities. 2)resp failure- on vent since presenting with shortness of breath at outside hospital. family wants to withdraw care. 3)seizures/unresponsive- repeat EEG and head CT today. Neuro to see and help with treatment and prognosis. 4)afib- on eliquis as outpatient for the last month or so. on amio and coreg now. 5)hyperthyroidism- has been on methimazole in past. 6)CHF-EF 40% on echo, grade 2 diastolic dysfunction apex severely hypokinetic. Cardiology following. 7)on tube feeds, tolerating. Current Visit: Yes (2) Atrial fibrillation with RVR Status: Chronic Current Visit: No (3) CHF (congestive heart failure) Status: Acute Current Visit: No (4) Respiratory failure requiring intubation Status: Acute Current Visit: Yes (5) Ventricular tachycardia Status: Acute Current Visit: Yes (6) Status epilepticus Status: Acute Current Visit: Yes (7) ARF (acute renal failure) Status: Acute Current Visit: Yes Hospitalist: Subjective Interval history: Mr Redman is stable on vent. About 10 minutes after Diprivan was turned off, we saw him have rhythmic chin and right hand movements that looked like seizure. This was also observed by nurses yesterday. Dr Mane will see him today and I want to talk to him before I discuss prognosis with the family. They are asking to withdraw care. I have ordered CT head repeat (its been 3 days since first one) and also repeat EEG. Exam - Constitutional Vitals: Period Temp Pulse Resp BP Sys/Rankin Pulse Ox Last 24 Hr 99 F-100 F 63-79 14-18 139-198/59-90 100-100 General appearance: normal weight, no acute distress - Head Head exam: Present: normocephalic, atraumatic - Eye Eye exam: Absent: EOMI Pupils: Absent: VISHNU (pupils small, left smaller than right, right minimally reactive, left does not constrict with light.) - Respiratory Respiratory exam: Present: clear to auscultation bilaterally - Cardiovascular Cardiovascular exam: Present: regular rate and rhythm - GI/Abdominal GI/Abdominal exam: Present: normal bowel sounds, soft - Extremities Exam Extremities exam: Present: edema (puffy all over.) - Skin Skin exam: Present: warm, dry Results - Labs CBC & BMP: 11/05/16 03:46 11/05/16 03:46 Lab Results: I have reviewed the past 24 hour labs
--- NOTE | 2016-11-05 10:15 | CT Report ---
Referring physician: Nasrin Dumas Exam: CT brain without contrast Date: 11/05/2016 Comparison: 11/02/2016 Reason: Post cardiac arrest, unresponsive Technique: Axial images of the head were obtained without the use of contrast. Total DLP was 997.9 mGy*cm. Findings: The lateral and third ventricles are now minimally to moderately dilated with no midline displacement. Effacement of the fourth ventricle with diffuse hypodensity in the cerebellum and brainstem. Vascular calcifications with hyperdense vascular structures. The mastoid air cells are clear. Progressive fluid/mucosal thickening in the paranasal sinuses. Impression: Findings which can be seen with recent extensive infarction/edema in the posterior fossa/brainstem with associated compression of the fourth ventricle and dilatation of the third and lateral ventricles. Hyperdense vasculature. Continued follow-up CT or MRI may be helpful for further evaluation. The CT exam was performed using one or more of the following dose reduction techniques: Automated exposure control and adjustment of the mA and/or kV according to patient size. PROCEDURE INTERPRETED AT [facility] DEPARTMENT OF RADIOLOGY Final Report Signed by: Dr. Izabela Lemons
[2016-11-05] MEDS: SODIUM ACETATE 50 MEQ in SODIUM CHLORIDE 0.45% 1,000 ML IV SCH (10:45)
--- NOTE | 2016-11-05 14:01 | Neurology Progress Note ---
Neurology - PN : Subjective Interval history: Patient continued to remain same. He is completely unresponsive. Whenever we try to turn down the diprivan, seizures starts. EEG did reveal extremely severe encephalopathy as well as seizures. Repeat CT head revealed bilateral cerebellar infarct with compression to fourth ventricle and dilatation of third ventricle as well as lateral ventricles. Exam (Progress Note) - Constitutional Vitals: Period Temp Pulse Resp BP Sys/Rankin Pulse Ox Last 24 Hr 99 F-9736 F 58-79 14-20 108-198/53-90 100-100 Exam: GENERAL: Patient is in no acute distress. NECK: Neck is supple. There is no JVD. No carotid bruits present. No thyroid masses. CVS: First and second heart sounds are normal. There is no S3 present. Regular rate and rhythm. RESPIRATORY: Lungs are clear to auscultation without any rales or rhonchi. ABDOMEN: Soft and non-tender. Bowel sounds are present. There is no hepatosplenomegaly. EXT: There is no palpable edema. Peripheral pulses are present. Skin: No rashes Central Nervous system: General: Unresponsive on vent Speech: None Comprehension: None Facial expressions: Normal Cranial Nerves: Pupils are sluggish. Doll's head eye movements are positive. No facial asymmetry is seen. Motor: Bulk and Tone is normal. Strength cannot be assessed, frequent tonic-clonic activity seen affecting right side of the body Sensory: Grossly intact for all the modalities of PP, LT and temp sense Reflexes: 1+ and symmetrical Cerebellar function: Cannot be assessed Toes: Equivocal Gait: Cannot be assessed Results - Labs CBC & BMP: 11/05/16 03:46 11/05/16 03:46 Assessment and Plan (1) Status epilepticus Status: Acute Assessment and plan: Continue Keppra and diprivan. 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 I do not see any signs of brainstem or cortical function. The chances of getting meaningful neurological recovery are extremely poor. Family wants to withdraw support at this time. I have discussed at length with all 4 daughters regarding the disease process, treatment options and prognosis Current Visit: Yes
[2016-11-05 15:22] VITALS: BP 152/60
[2016-11-05] MEDS ORDERED: MORPHINE 2 MG/1 ML SYRINGE IV PRN ×2 (16:09→16:16)
[2016-11-05] MEDS ORDERED: LORazepam 2 MG/1 ML VIAL IV PRN (16:09)
--- NOTE | 2016-11-05 17:21 | Electroencephalogram ---
HISTORY: A 76-year-old patient with a history of change in mental status and seizure. INTRODUCTION: A digital EEG was performed using the standard 10/20 system of electrode placement wit h one channel of EKG monitoring. Photic stimulation is performed. DESCRIPTION OF RECORD: The background is very disorganized, consists of very low amplitude 2 to 3 he rtz bilaterally symmetrical rhythm. This record is remarkable for intermittent generalized spike and there are discharges lasting from 2 to 7 seconds. Photic stimulation does not elicit a driving resp onse. Heart rate 66 beats per minute. IMPRESSION: 1. ABNORMAL EEG DUE TO GENERALIZED SLOWING. 2. EPILEPTIFORM DISCHARGES. CLINICAL CORRELATION: This record is supportive of severe encephalopathy as well as partial mechanis m of epilepsy (complex partial seizure). Clinical correlation is suggested.
--- NOTE | 2016-11-25 12:04 | Discharge Summary ---
Hospital Course - Hospital Course Hospital Course: Mr Redman presented after arrest with anoxic brain injury and seizures. His family spoketo Dr Mane and withdrew care. He shortly after. Diagnosis - Discharge Diagnosis (1) History of cardiac arrest Status: Acute (2) Atrial fibrillation with RVR Status: Chronic (3) CHF (congestive heart failure) Status: Acute (4) Respiratory failure requiring intubation Status: Acute (5) Ventricular tachycardia Status: Acute (6) Status epilepticus Status: Acute (7) ARF (acute renal failure) Status: Acute Discharge Plan - Discharge Data Disposition: - Discharge Medications No Action Lisinopril [Prinivil] 20 mg PO DAILY Apixaban [Eliquis] 5 mg PO BID #60 tablet Diltiazem Cd Cap [Cardizem CD] 240 mg PO DAILY #30 capsule methIMAzole [Tapazole] 5 mg PO TID #90 tablet Tamsulosin [Flomax] 0.4 mg PO DAILY Ascorbic Acid Tab [Vitamin C Tab] 1,000 mg PO BID #60 tablet Metoprolol Succinate Xl [Toprol Xl] 100 mg PO DAILY - Follow Up or Referral - Forms/Instructions DS: Provider Date of admission: 11/02/16 08:11 Primary care physician: . No PCP Attending physician on admission: Gabriela Rome MD Consults: 11/02/16 09:24 Consult to Physician [CONS] Routine Comment: A. fib RVR, elevated troponin Consulting Provider: Nicolas Jerez Consulting Provider Notified: Yes Consult to Specialist Group: Cardiology Person Notified: MARLENA Date Notified: 11/02/16 Time Notified: 09:55 Consult to Physician [CONS] Routine Comment: please assist with vent managment Consulting Provider: Brodie Ivey Consulting Provider Notified: Yes Consult to Specialist Group: Pulmonology Person Notified: CIRO Date Notified: 11/02/16 Time Notified: 10:00 11/02/16 10:50 Consult to Pastoral Services [CONS] Routine Comment: Pastoral Screen: Request Skiver Box Toe Visit Pastoral Screen Source of Request: Family 11/02/16 14:08 Consult to Physician [CONS] Routine Comment: Consulting Provider: Ryan Mane Consult to Specialist Group: Neurology When should Consulting Provider be notified: Now Person Notified: Dr. Mane Date Notified: 11/02/16 Time Notified: 14:09 11/02/16 15:42 Consult to Dietitian [CONS] Routine Reason for Dietitian: TF-Initiate/Manage 11/03/16 09:25 Consult to Physician [CONS] Routine Comment: Acute renal failure Consulting Provider: Consult to Specialist Group: Nephrology When should Consulting Provider be notified: Now Person Notified: Dr. Yoo Date Notified: 11/03/16 Time Notified: 10:45 Discharging clinician: Nasrin Dumas MD
== END 2016-11-05 16:55 | disposition expired | DRG 208 ==
LOC: EDBD → EDUNIT# → N.ED 06:21 → N.EDINP 08:11 → SUATTDRO 08:11 → N.ICU 09:26
PROVIDERS: ADMIT Pediatrics; ATTEND Internal Medicine